=== PATIENT | female | born 1960 | race African-American/Black ===

== ENCOUNTER 2022-02-09 11:45 | Outpatient (REF) | payer BC, SELFPAY ==
[2022-02-09 14:00] LABS: Hematocrit 46.5 % (37.0-47.0); Hemoglobin 15.2 g/dl (12.0-16.0); Mean Corpuscular HGB Conc 32.7 g/dl (31.0-35.0); Mean Corpuscular Hemoglobin 29.5 pg (27.0-33.0); Mean Corpuscular Volume 90.1 fL (80.0-98.0); Mean Platelet Volume 10.5 fL (9.4-12.3); Platelet Count 222 X10*3/uL (160-400); Red Blood Count 5.16 X10*6/uL (4.20-5.50); Red Cell Distribution Width 14.9 % (11.0-16.0); White Blood Count 6.7 X10*3/uL (4.8-10.8)
[2022-02-09 14:05] LABS: Appearance Urine HAZY; Color Urine YELLOW; Glucose Urine UA NEG (NEG); Leukocyte Esterase Urine TRACE (NEG); Nitrite Urine POS (NEG); PH 5.5 (5.0-8.0); Specific Gravity - Urine 1.025 (1.005-1.025); Urine Blood NEG (NEG); Urine Ketones NEG (NEG); Urine Protein NEG (NEG-TRACE)
[2022-02-09 14:15] LABS: Alanine Aminotransferase 26 U/L (0-31); Albumin Level 4.3 g/dL (3.5-5.0); Alkaline Phosphatase 80 U/L (39-117); Anion Gap 12 (12-20); Aspartate Amino Transferase 20 U/L (5-31); Bilirubin Total 0.2 mg/dL (0.0-1.0); Blood Urea Nitrogen 24 mg/dL (9-16); Calcium 9.3 mg/dL (8.4-10.2); Carbon Dioxide 23 mmol/L (22-29); Chloride 106 mmol/L (96-108); Cholesterol 225 mg/dL; Estimated Glomerular Filt Rate 47; Glucose Fasting 95 mg/dL (60-99); HDL Cholesterol 36 mg/dL; LDL Cholesterol Calculated 162 mg/dl; Potassium 4.3 mmol/L (3.3-5.1); Sodium 137 mmol/L (135-145); Total Protein 7.8 g/dL (6.5-8.0); Triglycerides 139 mg/dL
[2022-02-09 14:23] LABS: Bacteria Urine 2+ /LPF; RBC Urine 0-2 /HPF (0); Squamous Epithelial Cell Urine 2+ /LPF
== END 2022-02-09 11:46 | disposition home or self-care (01) ==
LOC: HO.HMGCLDS 11:45
PROVIDERS: PCP Internal Medicine; Visit Provider Internal Medicine
DX: Z00.00 Encounter for general adult medical examination without abnormal findings (principal); E03.9 Hypothyroidism, unspecified
CPT/HCPCS: 36415; 80053; 80061; 81001; 84443; 85027

== ENCOUNTER 2023-04-28 11:57 | Outpatient (REF) | payer BC, SELFPAY ==
[2023-04-28 13:17] LABS: MANUAL DIFF FLAG NO
[2023-04-28 13:40] LABS: Basophils Percent Auto 0.5 % (0-2); Eosinophils Absolute Auto 0.1 X10*3/uL (0.0-0.4); Eosinophils Percent Auto 1.8 % (0-4); Hematocrit 49.1 % (37.0-47.0); Imm Gran Abs Auto 0.03 X10*3/uL (0.00-0.03); Imm Gran Pct Auto 0.4 % (0.0-0.4); Lymphocytes Percent Auto 39.8 % (20-40); Mean Corpuscular HGB Conc 32.6 g/dl (31.0-35.0); Mean Corpuscular Hemoglobin 29.4 pg (27.0-33.0); Mean Corpuscular Volume 90.3 fL (80.0-98.0); Mean Platelet Volume 10.9 fL (9.4-12.3); Monocytes Absolute Auto 0.8 X10*3/uL (0.1-1.2); Monocytes Percent Auto 10.6 % (2-11); Neutrophils Absolute Auto 3.6 x10*3/uL (2.0-8.3); Neutrophils Percent Auto 46.9 % (45-73); Platelet Count 216 X10*3/uL (160-400); Red Blood Count 5.44 X10*6/uL (4.20-5.50); Red Cell Distribution Width 15.3 % (11.0-16.0); White Blood Count 7.6 X10*3/uL (4.8-10.8)
[2023-04-28 14:56] LABS: Alanine Aminotransferase 23 U/L (0-31); Albumin Level 4.4 g/dL (3.5-5.0); Alkaline Phosphatase 74 U/L (39-117); Anion Gap 17 (12-20); Aspartate Amino Transferase 19 U/L (5-31); Bilirubin Total 0.4 mg/dL (0.0-1.0); Blood Urea Nitrogen 18 mg/dL (9-16); Calcium 9.4 mg/dL (8.4-10.2); Carbon Dioxide 20 mmol/L (22-29); Chloride 106 mmol/L (96-108); Cholesterol 224 mg/dL; Estimated Glomerular Filt Rate 48; Glucose Fasting 92 mg/dL (60-99); HDL Cholesterol 37 mg/dL; LDL Cholesterol Calculated 160 mg/dl; Potassium 4.5 mmol/L (3.3-5.1); Sodium 138 mmol/L (135-145); Triglycerides 135 mg/dL
[2023-04-28 14:59] LABS: TSH reflex Free T4 6.77 uIU/mL (0.32-4.0)
[2023-04-28 16:03] LABS: Free T4 (Free Thyroxine) 0.83 ng/dL (0.71-1.85)
== END 2023-04-28 11:58 | disposition home or self-care (01) ==
LOC: HO.HMGCLDS 11:57
PROVIDERS: PCP Internal Medicine; Visit Provider Internal Medicine
DX: Z00.00 Encounter for general adult medical examination without abnormal findings (principal); E03.9 Hypothyroidism, unspecified; E78.5 Hyperlipidemia, unspecified; I10 Essential (primary) hypertension
CPT/HCPCS: 36415; 80053; 80061; 84439; 84443; 85025

== ENCOUNTER 2023-05-01 09:59 | Outpatient (AMB) | payer BC, SELFPAY ==
[2023-05-01 10:07] VITALS: BP 128/72; PULSE 68; O2SAT 97; BMI 35.6
--- NOTE | 2023-05-01 10:07 | MHC.PC.OV ---
Vital Signs 05/01/23 10:07 Height 5 ft 5 in Weight 214 lb 4 oz BMI 35.6 BP 128/72 Blood Pressure Location Lt brachial Position Sitting Pulse 68 Pulse Source Pulse Oximeter Pulse Oximetry (%) 97 Oxygen Delivery Method Room Air Intake Visit Reasons: follow up on mammo Allergies pravastatin Allergy (Unknown, Verified 05/01/23 10:08) nausea rosuvastatin [From Crestor] Allergy (Verified 05/01/23 10:08) hives IV contrast Allergy (Unknown, Uncoded 03/17/22 08:28) rash SOB Medication List - Last Reconciled 05/01/23 by Akua Paige MD albuterol sulfate 90 mcg/actuation 2 puffs inhalation Q6H PRN levothyroxine 125 mcg PO DAILY Tobacco use date assessed: 05/01/23 Fall risk assessment: No Falls in past year Last assessed Fall Risk: 05/01/23 Dental Screening Dental Screen Date: 05/01/23 Did you have a dental visit in the last 12 months?: No Did you have a dental problem in the last 6 months where you did not have access to dental care?: No Was dental information given to patient?: No HPI HPI Comments History of Present Illness Details Pt presents for PE. PFS Medical History (Updated 05/01/23 @ 11:02 by Akua Piage MD) Annual physical exam History of mammogram HTN (hypertension) Hyperlipidemia Hypothyroidism Lung nodule < 6cm on CT Obesity Peptic ulcer disease Thyroid nodule Surgical History (Updated 05/01/23 @ 11:01 by Akua Paige MD) H/O colonoscopy No pertinent past surgical history Family History Father No problems noted. Mother Multiple sclerosis Social History Housing: House Alcohol intake: never Patient Tobacco Use Status: Current everyday Tobacco user Tobacco use type: Cigarette Cigarette Packs Per Day: 1 Cigarettes Per Day: 20 e-Cigarette/Vaping Use: Never Used Current occupational status: unemployed Cognitive needs: No Hearing needs: No Vision needs: No Questionnaire Thrive Questionnaire Date Thrive assessed: 02/09/22 ANIYA-7 AMB Questionnaire ANIYA-7 Date ANIYA - 7 assessed: 02/09/22 Source: Developed by Drs. Richard Prieto, Gavi Platt, Missael Chavez and colleagues, with an educational stevan from [employer]. Review of Systems Const All systems reviewed & are unremarkable except as noted in HPI and below Reports no additional complaints Eyes Reports no additional complaints ENT Reports no additional complaints Card Reports no additional complaints Resp Reports no additional complaints GI Reports no additional complaints Reports no additional complaints Physical exam (Primary Care) Vital Signs: Last Vital Signs Pulse 68 05/01/23 10:07 BP 128/72 05/01/23 10:07 Pulse Ox 97 05/01/23 10:07 Oxygen Delivery Method Room Air 05/01/23 10:07 BMI result Body Mass Index 35.6 Tobacco/Smoking Status: Tobacco use Status Tobacco use date assessed 05/01/23 05/01/23 10:12 Patient Tobacco Use Status Current everyday Tobacco 05/01/23 10:12 Tobacco use type Cigarette 05/01/23 10:12 e-Cigarette/Vaping Use Never Used 05/01/23 10:12 Thrive Assessment: Date of Thrive Assessment Date Thrive assessed 02/09/22 05/01/23 10:12 Const General: no acute distress HENMT Head: Yes normal to inspection Ears: hearing grossly normal bilaterally General nose exam: Normal external nose present Face and sinus: Yes normal facial exam Mouth: Normal oral and palatal mucosa present Throat: Yes posterior oropharynx normal Eyes General: appearance normal, both eyes and all related structures Neck Neck: Yes no lymphadenopathy and Yes supple Resp Effort & Inspection: normal respiratory effort Auscultation: clear to auscultation bilaterally Cardio Rhythm: regular rhythm Heart sounds: S1 normal heart sound present and S2 normal heart sound present GI Inspection: Yes normal to inspection Palpation (GI): Soft to palpation Percussion: Yes normal to percussion Auscultation: normal bowel sounds Assessment and Plan Assessment & Plan (1) Smoker: Comment: 1 PPD X 20 years Code(s): F17.200 - Nicotine dependence, unspecified, uncomplicated Plan: Tobacco quitting discussed with the patient (2) Hyperlipidemia: Comment: Intolerant to statins Code(s): E78.5 - Hyperlipidemia, unspecified Plan: Low-cholesterol diet increase exercise weight loss discussed with the patient (3) CKD (chronic kidney disease) stage 3, GFR 30-59 ml/min: Code(s): N18.30 - Chronic kidney disease, stage 3 unspecified Plan: Avoid NSAIDs and dehydration discussed with the patient check UA and renal ultrasound (4) Hypothyroidism: Code(s): E03.9 - Hypothyroidism, unspecified Plan: Patient was advised to take levothyroxine on empty stomach and recheck TSH in 2 months (5) Annual physical exam: Code(s): Z00.00 - Encounter for general adult medical examination without abnormal findings Plan: Well-balanced diet regular exercise weight loss discussed with the patient. She is up-to-date with the mammogram and colonoscopy (6) HTN (hypertension): Code(s): I10 - Essential (primary) hypertension Plan: Start 5 mg of olmesartan for renal protection and borderline elevated blood pressure, follow-up in 2 months Orders: Orders Comprehensive [place]. Panel Fast 2 Months E03.9 - Hypothyroidism, unspecified, N18.30 - Chronic kidney disease, stage 3 unspecified TSH reflex Free T4 2 Months E03.9 - Hypothyroidism, unspecified, N18.30 - Chronic kidney disease, stage 3 unspecified Complete Blood Count Auto Diff 2 Months E03.9 - Hypothyroidism, unspecified, N18.30 - Chronic kidney disease, stage 3 unspecified US renal BI 2 Months E03.9 - Hypothyroidism, unspecified, N18.30 - Chronic kidney disease, stage 3 unspecified Lipid Panel 2 Months E78.5 - Hyperlipidemia, unspecified UA w Microscopic Today N18.30 - Chronic kidney disease, stage 3 unspecified Referrals Thoracic Surgery Referral F17.200 - Nicotine dependence, unspecified, uncomplicated Medications: New olmesartan 5 mg PO DAILY 60 tabs 1RF Changed From levothyroxine Future refills pending upcoming appt 125 mcg PO DAILY 30 tabs 0RF To levothyroxine 125 mcg PO DAILY 90 tabs 3RF Coding Level of Care Code Est Pt Prev Care 40-64y(60341) Diagnoses Smoker F17.200 Hyperlipidemia E78.5 CKD (chronic kidney disease) stage 3, GFR 30-59 ml/min N18.30 Hypothyroidism E03.9 Annual physical exam Z00.00 HTN (hypertension) I10
== END 2023-05-01 11:04 | disposition home or self-care (01) ==
PROVIDERS: PCP Internal Medicine; Visit Provider Internal Medicine
DX: Z00.00 Encounter for general adult medical examination without abnormal findings (principal); I12.9 Hypertensive chronic kidney disease with stage 1 through stage 4 chronic kidney disease, or unspecified chronic kidney disease; N18.30 Chronic kidney disease, stage 3 unspecified; F17.200 Nicotine dependence, unspecified, uncomplicated; E03.9 Hypothyroidism, unspecified; E78.5 Hyperlipidemia, unspecified
CPT/HCPCS: 99396

== ENCOUNTER 2023-05-01 11:00 | Outpatient (REF) | payer BC, SELFPAY ==
[2023-05-01 13:59] LABS: Appearance Urine Cloudy; Color Urine Yellow; Glucose Urine UA Negative (Negative); Leukocyte Esterase Urine Large (3+) (Negative); Nitrite Urine Positive (Negative); PH 5.5 (5.0-9.0); UMIC TRIGGER UA YES; Urine Blood Small (1+) (Negative); Urine Ketones Negative (Negative); Urine Protein Negative (Neg-Trace)
[2023-05-01 14:11] LABS: Bacteria Urine 4+ (None Seen); Hyaline Casts Urine 0-2 /LPF (0-2); WBC Urine >50 /HPF (0-5)
== END 2023-05-01 11:01 | disposition home or self-care (01) ==
LOC: HO.HMGCLDS 11:00
PROVIDERS: PCP Internal Medicine; Visit Provider Internal Medicine
DX: N18.30 Chronic kidney disease, stage 3 unspecified (principal)
CPT/HCPCS: 81001

== ENCOUNTER 2023-06-06 10:14 | Outpatient (REF) | payer BC, SELFPAY ==
[2023-06-06 13:22] LABS: MANUAL DIFF FLAG NO
[2023-06-06 13:39] LABS: Basophils Percent Auto 0.4 % (0-2); Eosinophils Absolute Auto 0.1 X10*3/uL (0.0-0.4); Hematocrit 47.4 % (37.0-47.0); Hemoglobin 15.4 g/dl (12.0-16.0); Imm Gran Abs Auto 0.04 X10*3/uL (0.00-0.03); Imm Gran Pct Auto 0.6 % (0.0-0.4); Lymphocytes Absolute Auto 2.9 X10*3/uL (1.2-4.9); Lymphocytes Percent Auto 42.6 % (20-40); Mean Corpuscular HGB Conc 32.5 g/dl (31.0-35.0); Mean Corpuscular Hemoglobin 29.4 pg (27.0-33.0); Mean Corpuscular Volume 90.6 fL (80.0-98.0); Mean Platelet Volume 10.7 fL (9.4-12.3); Monocytes Absolute Auto 0.7 X10*3/uL (0.1-1.2); Monocytes Percent Auto 10.8 % (2-11); Neutrophils Percent Auto 43.6 % (45-73); Platelet Count 221 X10*3/uL (160-400); Red Blood Count 5.23 X10*6/uL (4.20-5.50); White Blood Count 6.9 X10*3/uL (4.8-10.8)
[2023-06-06 14:54] LABS: Alanine Aminotransferase 50 U/L (0-31); Albumin Level 4.6 g/dL (3.5-5.0); Alkaline Phosphatase 63 U/L (39-117); Anion Gap 14 (12-20); Aspartate Amino Transferase 24 U/L (5-31); Bilirubin Total 0.3 mg/dL (0.0-1.0); Blood Urea Nitrogen 25 mg/dL (9-16); Calcium 9.3 mg/dL (8.4-10.2); Carbon Dioxide 22 mmol/L (22-29); Chloride 106 mmol/L (96-108); Cholesterol 206 mg/dL (<200); Estimated Glomerular Filt Rate 47; Glucose Fasting 95 mg/dL (60-99); HDL Cholesterol 40 mg/dL (>40); LDL Cholesterol Calculated 144 mg/dL (<100); Potassium 4.5 mmol/L (3.3-5.1); Sodium 137 mmol/L (135-145); Total Protein 8.1 g/dL (6.5-8.0); Triglycerides 111 mg/dL (<150)
[2023-06-06 14:55] LABS: TSH reflex Free T4 0.54 uIU/mL (0.32-4.0)
== END 2023-06-06 10:15 | disposition home or self-care (01) ==
LOC: HO.HMGCLDS 10:14
PROVIDERS: PCP Internal Medicine; Visit Provider Internal Medicine
DX: E03.9 Hypothyroidism, unspecified (principal); N18.30 Chronic kidney disease, stage 3 unspecified; E78.5 Hyperlipidemia, unspecified; R74.8 Abnormal levels of other serum enzymes
CPT/HCPCS: 36415; 80053; 80061; 82550; 84443; 85025

== ENCOUNTER 2023-06-09 12:49 | Outpatient (AMB) | payer BC, SELFPAY ==
[2023-06-09 13:28] VITALS: BP 102/64; PULSE 76; O2SAT 96; BMI 34.1
--- NOTE | 2023-06-09 13:28 | MHC.PC.OV ---
Vital Signs 06/09/23 13:28 Height 5 ft 5 in Weight 205 lb BMI 34.1 BP 102/64 Blood Pressure Location Rt brachial Position Sitting Pulse 76 Pulse Source Pulse Oximeter Pulse Oximetry (%) 96 Oxygen Delivery Method Room Air Intake Visit Reasons: [facility] [place] [facility], syncope Intake Note: Pt is here today for Hospital follow up visit. Allergies pravastatin Allergy (Unknown, Verified 06/09/23 13:40) nausea rosuvastatin [From Crestor] Allergy (Verified 06/09/23 13:40) hives IV contrast Allergy (Unknown, Uncoded 06/09/23 13:40) rash SOB Medication List - Last Reconciled 06/09/23 by Akua Paige MD albuterol sulfate 90 mcg/actuation 2 puffs inhalation Q6H PRN levothyroxine 125 mcg PO DAILY olmesartan 5 mg PO DAILY Tobacco use date assessed: 05/01/23 Fall risk assessment: No Falls in past year Last assessed Fall Risk: 05/01/23 Dental Screening Dental Screen Date: 05/01/23 Did you have a dental visit in the last 12 months?: No Did you have a dental problem in the last 6 months where you did not have access to dental care?: No Was dental information given to patient?: No HPI [facility] [place] [facility], syncope HPI Details Patient presents for the follow-up of hospitalization at [facility] after syncope and elevation CPK question of myositis. Patient states she developed like pain when walking in a park and then syncope. There are no medical records available from hospitalization. Patient was told that her CPK level was in 6000 and was supposed to recheck the level. She had some DNA testing done by the neurologist Dr. Addi Segura MD ([facility]) fax [phone]. Patient denies muscle pains. She has been taking olmesartan for hypertension and levothyroxine for hypothyroidism. [facility] Medical History Nicotine dependence, cigarettes, uncomplicated Hypothyroidism HTN (hypertension) Lung nodule < 6cm on CT History of mammogram Peptic ulcer disease Thyroid nodule Obesity Hyperlipidemia Surgical History History of esophagogastroduodenoscopy (EGD) History of thyroidectomy History of colonoscopy Family History Father No problems noted. Mother Multiple sclerosis Social History Housing: House Alcohol intake: never Patient Tobacco Use Status: Current everyday Tobacco user Tobacco use type: Cigarette Cigarette Packs Per Day: 1 Cigarettes Per Day: 20 e-Cigarette/Vaping Use: Never Used Current occupational status: unemployed Cognitive needs: No Hearing needs: No Vision needs: No Questionnaire PHQ-9 Over the last 2 weeks, how often have you been bothered by any of the following problems? 1. Little interest or pleasure in doing things: not at all 2. Feeling down, depressed, or hopeless: not at all 3. Trouble falling or staying asleep, or sleeping too much: not at all 4. Feeling tired or having little energy: not at all 5. Poor appetite or overeating: not at all 6. Feeling bad about yourself - or that you are a failure or have let yourself or your family down: not at all 7. Trouble concentrating on things, such as reading the newspaper or watching television: not at all 8. Moving or speaking so slowly that other people could have noticed. Or the opposite - being so fidgety or restless that you have been moving around a lot more than usual: not at all 9. Thoughts that you would be better off or of hurting yourself in some way: not at all Total score: 0 Depression Screening Interpretation: Negative Source: Developed by Drs. Richard Prieto, Gavi Platt, Missael Chavez and colleagues, with an educational stevan from [employer]. Thrive Questionnaire Date Thrive assessed: 06/09/23 I am a: Patient What is your living situation today?: I have a steady place to live Within the past 12 months, did the food you bought not last and you didn't have the money to get more?: Never true Within the past 12 months, did you worry whether your food would run out before you got money to buy more?: Never true Do you have trouble paying for medicines?: No Do you have trouble getting transportation to medical appointments?: No Do you have trouble paying your heating and electricity bill?: No Do you have trouble taking care of your child, family member or friend?: No Do you have trouble with day-to-day activities such as bathing, preparing meals, shopping, managing finances, etc.?: No Are you currently unemployed and looking for a job?: No Are you interested in more education?: No Please select the resources that you would like help with: None AUDIT C Alcohol Use Questionnaire (AUDIT-C) 1. How often do you have a drink containing alcohol?: Never 3. How often do you have six or more drinks on one occasion?: Never Total Score: 0 ANIYA-7 AMB Questionnaire ANIYA-7 Date ANIYA - 7 assessed: 06/09/23 Feeling nervous, anxious, or on edge: 0 = Not at all Not being able to stop or control worryin = Not at all Worrying too much about different things: 0 = Not at all Trouble relaxin = Not at all Being so restless that it is hard to sit still: 0 = Not at all Becoming easily annoyed or irritable: 0 = Not at all Feeling afraid as if something awful might happen: 0 = Not at all Total ANIYA-7 score (0-4 normal; 5-9 mild; 10-14 moderate; 15-21 severe): 0 Source: Developed by Drs. Richard Prieto, Gavi Platt, Missael Chavez and colleagues, with an educational stevan from [employer]. Review of Systems Const All systems reviewed & are unremarkable except as noted in HPI and below Reports no additional complaints Eyes Reports no additional complaints ENT Reports no additional complaints Card Reports no additional complaints Resp Reports no additional complaints GI Reports no additional complaints Reports no additional complaints Physical exam (Primary Care) Vital Signs: Last Vital Signs Pulse 76 06/09/23 13:28 BP 102/64 06/09/23 13:28 Pulse Ox 96 06/09/23 13:28 Oxygen Delivery Method Room Air 06/09/23 13:28 BMI result Body Mass Index 34.1 Tobacco/Smoking Status: Tobacco use Status Tobacco use date assessed 05/01/23 06/09/23 13:29 Patient Tobacco Use Status Current everyday Tobacco 06/09/23 13:29 Tobacco use type Cigarette 06/09/23 13:29 e-Cigarette/Vaping Use Never Used 06/09/23 13:29 PHQ-9: PHQ-9 Score PHQ-9: Total score 0 06/09/23 13:44 Depression Screening Interpretation: Negative Thrive Assessment: Date of Thrive Assessment Date Thrive assessed 06/09/23 06/09/23 13:44 Const General: no acute distress [facility] General nose exam: Normal external nose present Eyes General: appearance normal, both eyes and all related structures Resp Effort & Inspection: normal respiratory effort Auscultation: clear to auscultation bilaterally Cardio Rhythm: regular rhythm Heart sounds: S1 normal heart sound present and S2 normal heart sound present GI Inspection: Yes normal to inspection Palpation (GI): Soft to palpation Percussion: Yes normal to percussion Assessment and Plan Assessment & Plan (1) Elevated CK: Code(s): R74.8 - Abnormal levels of other serum enzymes Plan: CK levels trending down, will recheck the level in 1 month. Will obtain records from [facility] (2) CKD (chronic kidney disease) stage 3, GFR 30-59 ml/min: Code(s): N18.30 - Chronic kidney disease, stage 3 unspecified Plan: Monitor renal function avoid dehydration (3) Hypothyroidism: Comment: (acquired - s/p thyroidectomy) Code(s): E03.9 - Hypothyroidism, unspecified Plan: Continue levothyroxine (4) HTN (hypertension): Code(s): I10 - Essential (primary) hypertension Plan: Continue olmesartan follow-up in 1 month Orders: Orders Comprehensive [place]. Panel Fast 1 Month N18.30 - Chronic kidney disease, stage 3 unspecified, R74.8 - Abnormal levels of other serum enzymes Creatine Kinase Total 1 Month N18.30 - Chronic kidney disease, stage 3 unspecified, R74.8 - Abnormal levels of other serum enzymes Coding Level of Care Code Est Pt Level 4 (92942) Diagnoses Elevated CK R74.8 CKD (chronic kidney disease) stage 3, GFR 30-59 ml/min N18.30 Hypothyroidism E03.9 HTN (hypertension) I10
== END 2023-06-09 14:28 | disposition home or self-care (01) ==
PROVIDERS: PCP Internal Medicine; Visit Provider Internal Medicine
DX: I12.9 Hypertensive chronic kidney disease with stage 1 through stage 4 chronic kidney disease, or unspecified chronic kidney disease (principal); R74.8 Abnormal levels of other serum enzymes; N18.30 Chronic kidney disease, stage 3 unspecified; E03.9 Hypothyroidism, unspecified
CPT/HCPCS: 99214

== ENCOUNTER 2023-06-16 14:57 | Outpatient (AMB) | payer BC, SELFPAY ==
--- NOTE | 2023-06-16 08:52 | MHC.OFFVIS ---
Intake Intake Visit Reasons: LDCT SD Allergies pravastatin Allergy (Unknown, Verified 06/09/23 13:40) nausea rosuvastatin [From Crestor] Allergy (Verified 06/09/23 13:40) hives IV contrast Allergy (Unknown, Uncoded 06/09/23 13:40) rash SOB HPI LDCT SD HPI Details Initial visit for this 62yo smoker with a 40PYH. Patient has been smoking since age 18 for 44 years at 1ppd. . Denies marijuana use. Denies second hand smoke exposure. Denies exposure to chemicals or substances like asbestos. . Reports family history of lung cancer. Sister in her mid 40s - has since passed. Denies personal history of cancers. . Denies chest CT in last year. Per records she had a 4mm on CT 05/2018 RUL, unchanged CT 09/2019. These were done in [place] and we do not have record. . Denies recent travel outside the . Denies recent respiratory illness or recent hospitalization for respiratory issues. Reports testing positive for COVID in 2020 Admits receiving COVID Vaccine. x 3. . Denies fever, chills, new/worsening cough, hemoptysis, hoarseness or dysphagia. Denies significant chest pain, significant dyspnea or unintentional weight loss. Patient Lung Cancer Screening Questionnaire reviewed with patient by provider. . Shared Decision Making Completed. Patient meets criteria. Discussed in detail with patient, the risk vs benefit of LDCT screening. Patient consents to proceed with scan. Discussed smoking cessation. [facility] Medical History (Updated 06/16/23 @ 15:06 by Roxy Ambrocio PA-C) Hypothyroidism HTN (hypertension) Hyperlipidemia Nicotine dependence, cigarettes, uncomplicated Lung nodule < 6cm on CT Peptic ulcer disease Obesity History of mammogram Surgical History (Updated 06/16/23 @ 15:10 by Roxy Ambrocio PA-C) History of partial gastrectomy History of repair of right rotator cuff History of hysterectomy History of thyroidectomy History of esophagogastroduodenoscopy (EGD) History of colonoscopy Family History Father No problems noted. Mother Multiple sclerosis Social History (Updated 06/16/23 @ 15:07 by Roxy Ambrocio PA-C) Housing: House Alcohol intake: never Patient Tobacco Use Status: Current everyday Tobacco user Tobacco use type: Cigarette Cigarette Packs Per Day: 1 Cigarettes Per Day: 20 Years Smoked: (onset 18yo, 1ppd x 44yrs, 40pyh) e-Cigarette/Vaping Use: Never Used Current occupational status: unemployed Cognitive needs: No Hearing needs: No Vision needs: No Assessment & Plan Assessment & Plan (1) Nicotine dependence, cigarettes, uncomplicated: Comment: (current smoker - onset 18yo, 1ppd x 44yrs, 40pyh) Code(s): F17.210 - Nicotine dependence, cigarettes, uncomplicated Plan: - SDM visit completed today in office. - Patient meets criteria for LDCT for lung cancer screening purposes and is asymptomatic. - Smoking cessation counseling offered. Patients can always call [phone]. - Will arrange for a LDCT scan of the chest for screening purposes at [facility]. - Risks, benefits, and alternatives were discussed in detail and the patient agrees to proceed. - Risks discussed include but are not limited to: radiation exposure, anxiety during testing and while awaiting results, false negatives, false positives and possibility of additional intervention such as further imaging or surgical procedures for benign disease. - Benefits are obviously detection of lung cancer at an early stage which can lead to improved outcomes. - Discussed the importance of screening program compliance with adherence to yearly LDCT scan as scheduled - or sooner interval scans for personalized screening regimen. - Discussed follow up plan. Our office will send a letter discussing results and if needed set up phone call and office visit based on CT findings. - Patient educated on results categorization and the management decisions for suspicious findings potentially found on the screening LDCT scan. Any patient with a Lung RADS score of 3 or 4 will be reviewed by a multidisciplinary team at [facility] to form a plan of action in regards to scan findings. - If further work up is warranted for a suspicious lung finding this will be followed by the Lung Cancer Screening program in conjunction with the Thoracic Surgery Department at [facility]. - A copy of the office note and LDCT will be sent to the patient's PCP - as well as documentation on any associated further plans of care. - Incidental findings on LDCT are the PCP's responsibility. These findings are indicated with an S finding on the LDCT Assessment. A note discussing the findings will be sent to the PCP who is then responsible for further management. - All questions answered.? Coding Level of Care Code Lung Cancer Screening [id number] Diagnoses Nicotine dependence, cigarettes, uncomplicated F17.210
== END 2023-06-16 15:16 | disposition home or self-care (01) ==
PROVIDERS: PCP Internal Medicine; Visit Provider Physician Assistant Medical
DX: F17.210 Nicotine dependence, cigarettes, uncomplicated (principal)
CPT/HCPCS: G0296

== ENCOUNTER 2023-06-16 15:20 | Outpatient (REF) | payer BC, SELFPAY ==
--- NOTE | ~2023-06-16 | CT_ITS ---
EXAMINATION: CT CHEST SCREENING CLINICAL INFORMATION: Current smoker. Nicotine dependence. COMPARISON: None available. TECHNIQUE: Multidetector volumetric CT imaging of the chest is performed without contrast using low dose technique. Additional 2D coronal and sagittal reformatted images and axial 3D maximum intensity projection (MIP) images are generated on the CT workstation. This CT examination was performed using dose optimization techniques as appropriate, variously including the following: *Automated exposure control *Adjustment of mA and/or kV according to patient size (this includes techniques or standardized protocols for targeted exams where dose is matched to indication/reason for exam; i.e. extremities or head) *Use of iterative reconstruction technique DLP: 58 mGy-cm FINDINGS: LUNGS: The central airways are patent. There is mild centrilobular and paraseptal emphysema with upper lobe predominance. No dense consolidation. Subtle groundglass opacity of the lower lobes favors atelectasis. No pneumothorax. There is an anterior right middle lobe 0.4 cm nodule on series 5 image 207. No additional pulmonary nodules identified. MEDIASTINUM: Normal heart size. No pericardial effusion. No mediastinal lymphadenopathy. The thyroid gland is not seen and may be absent. CORONARY ARTERY CALCIFICATION: None visualized on this study. PLEURA: There is no pleural effusion. No pleural mass or thickening. AXILLA: No lymphadenopathy. UPPER ABDOMEN: Low-attenuation of the liver suggestive of hepatic steatosis. Multiple hepatic cysts are seen. Additional prominent cyst in the right upper quadrant not fully visualized. This could be associated with the right kidney. No acute abnormality in the visualized upper abdomen. OSSEOUS STRUCTURES: No acute or suspicious osseous abnormality. Mild degenerative changes throughout the spine. CT/CT lung screening IMPRESSION: 1. Mild emphysema. 0.4 cm right middle lobe pulmonary nodule. 2. Hepatic steatosis. ASSESSMENT: Lung-RADS category 2: Benign RECOMMENDATION: Routine annual low-dose CT screening in 12 months.
== END 2023-06-16 15:21 | disposition home or self-care (01) ==
LOC: HO.CT 15:20
PROVIDERS: PCP Internal Medicine; Visit Provider Physician Assistant Medical
DX: Z12.2 Encounter for screening for malignant neoplasm of respiratory organs (principal); F17.210 Nicotine dependence, cigarettes, uncomplicated
CPT/HCPCS: 71271; G0296

== ENCOUNTER 2023-07-17 09:14 | Outpatient (AMB) | payer MEDICARE, BC, SELFPAY ==
[2023-07-17 09:29] VITALS: BP 122/74; PULSE 73; O2SAT 96; BMI 35.1
--- NOTE | 2023-07-17 09:29 | MHC.PC.OV ---
Vital Signs 07/17/23 09:29 Height 5 ft 5 in Weight 211 lb BMI 35.1 BP 122/74 Blood Pressure Location Lt brachial Position Sitting Pulse 73 Pulse Source Pulse Oximeter Pulse Oximetry (%) 96 Oxygen Delivery Method Room Air Intake Visit Reasons: 1 month follow up Intake Note: Pt is here today for 1 month follow up visit. Pt states that she was in the hospital for a week. Allergies pravastatin Allergy (Unknown, Verified 07/17/23 09:33) nausea rosuvastatin [From Crestor] Allergy (Verified 07/17/23 09:33) hives IV contrast Allergy (Unknown, Uncoded 07/17/23 09:33) rash SOB Medication List - Last Reconciled 07/17/23 by Akua Paige MD albuterol sulfate 90 mcg/actuation 2 puffs inhalation Q6H PRN levothyroxine 125 mcg PO DAILY olmesartan 5 mg PO DAILY Tobacco use date assessed: 07/17/23 HPI 1 month follow up HPI Details Patient presents for the follow-up of hospitalization and [place] for acute renal failure elevated CPK level. The workup was negative for sepsis. Patient states that blood work for myositis workup was sent to the outside lab. Patient reports intermittent muscle tightness in her legs but has been maintaining good hydration and walking daily. [facility] Medical History Hypothyroidism HTN (hypertension) Hyperlipidemia Nicotine dependence, cigarettes, uncomplicated Lung nodule < 6cm on CT Peptic ulcer disease Obesity History of mammogram Surgical History History of partial gastrectomy History of repair of right rotator cuff History of hysterectomy History of thyroidectomy History of esophagogastroduodenoscopy (EGD) History of colonoscopy Family History Father No problems noted. Mother Multiple sclerosis Social History Housing: House Alcohol intake: never Patient Tobacco Use Status: Current everyday Tobacco user Tobacco use type: Cigarette Cigarette Packs Per Day: 1 Cigarettes Per Day: 20 Years Smoked: (onset 18yo, 1ppd x 44yrs, 40pyh) e-Cigarette/Vaping Use: Never Used Current occupational status: unemployed Cognitive needs: No Hearing needs: No Vision needs: No Questionnaire Thrive Questionnaire Date Thrive assessed: 06/09/23 ANIYA-7 AMB Questionnaire ANIYA-7 Date ANIYA - 7 assessed: 06/09/23 Source: Developed by Drs. Richard Preito, Gavi Platt, Missael Chavez and colleagues, with an educational stevan from [employer]. Review of Systems Const All systems reviewed & are unremarkable except as noted in HPI and below Reports no additional complaints Eyes Reports no additional complaints ENT Reports no additional complaints Resp Reports no additional complaints Reports no additional complaints Physical exam (Primary Care) Vital Signs: Last Vital Signs Pulse 73 07/17/23 09:29 BP 122/74 07/17/23 09:29 Pulse Ox 96 07/17/23 09:29 Oxygen Delivery Method Room Air 07/17/23 09:29 BMI result Body Mass Index 35.1 Tobacco/Smoking Status: Tobacco use Status Tobacco use date assessed 07/17/23 07/17/23 09:34 Patient Tobacco Use Status Current everyday Tobacco 07/17/23 09:30 Tobacco use type Cigarette 07/17/23 09:30 e-Cigarette/Vaping Use Never Used 07/17/23 09:30 Thrive Assessment: Date of Thrive Assessment Date Thrive assessed 06/09/23 07/17/23 09:30 Const General: no acute distress HENMT Mouth: Normal oral and palatal mucosa present Resp Effort & Inspection: normal respiratory effort Auscultation: clear to auscultation bilaterally Cardio Rhythm: regular rhythm Heart sounds: S1 normal heart sound present and S2 normal heart sound present GI Inspection: Yes normal to inspection Palpation (GI): Soft to palpation Percussion: Yes normal to percussion Assessment and Plan Assessment & Plan (1) Myositis: Comment: hospitalized in [place], Jul 0512/2022 Code(s): M60.9 - Myositis, unspecified Plan: Check CK level and referred to rheumatology (2) CKD (chronic kidney disease) stage 3, GFR 30-59 ml/min: Code(s): N18.30 - Chronic kidney disease, stage 3 unspecified Plan: Monitor renal function (3) Hypothyroidism: Comment: (acquired - s/p thyroidectomy) Code(s): E03.9 - Hypothyroidism, unspecified Plan: Continue levothyroxine monitor TSH level (4) HTN (hypertension): Code(s): I10 - Essential (primary) hypertension Plan: Continue olmesartan Orders: Orders Lipid Panel 6 Months E03.9 - Hypothyroidism, unspecified, I10 - Essential (primary) hypertension, N18.30 - Chronic kidney disease, stage 3 unspecified, R74.8 - Abnormal levels of other serum enzymes Comprehensive [place]. Panel Fast 6 Months E03.9 - Hypothyroidism, unspecified, I10 - Essential (primary) hypertension, N18.30 - Chronic kidney disease, stage 3 unspecified, R74.8 - Abnormal levels of other serum enzymes Creatine Kinase Total Today M60.9 - Myositis, unspecified, N18.30 - Chronic kidney disease, stage 3 unspecified Comprehensive Met. Panel Today M60.9 - Myositis, unspecified, N18.30 - Chronic kidney disease, stage 3 unspecified Complete Blood Count Auto Diff 6 Months E03.9 - Hypothyroidism, unspecified, I10 - Essential (primary) hypertension, N18.30 - Chronic kidney disease, stage 3 unspecified, R74.8 - Abnormal levels of other serum enzymes TSH reflex Free T4 6 Months E03.9 - Hypothyroidism, unspecified, I10 - Essential (primary) hypertension, N18.30 - Chronic kidney disease, stage 3 unspecified, R74.8 - Abnormal levels of other serum enzymes Referrals Rheumatology Referral M60.9 - Myositis, unspecified Coding Level of Care Code Est Pt Level 3 (15988) Diagnoses Myositis M60.9 CKD (chronic kidney disease) stage 3, GFR 30-59 ml/min N18.30 Hypothyroidism E03.9 HTN (hypertension) I10
== END 2023-07-17 10:18 | disposition home or self-care (01) ==
PROVIDERS: PCP Internal Medicine; Visit Provider Internal Medicine
DX: M60.9 Myositis, unspecified (principal); I12.9 Hypertensive chronic kidney disease with stage 1 through stage 4 chronic kidney disease, or unspecified chronic kidney disease; N18.30 Chronic kidney disease, stage 3 unspecified; E03.9 Hypothyroidism, unspecified
CPT/HCPCS: 99213

== ENCOUNTER 2023-07-17 10:07 | Outpatient (REF) | payer MEDICARE, BC, SELFPAY ==
[2023-07-17 13:51] LABS: Alanine Aminotransferase 27 U/L (0-31); Albumin Level 4.2 g/dL (3.5-5.0); Alkaline Phosphatase 74 U/L (39-117); Anion Gap 14 (12-20); Aspartate Amino Transferase 18 U/L (5-31); Bilirubin Total 0.3 mg/dL (0.0-1.0); Blood Urea Nitrogen 20 mg/dL (9-16); Carbon Dioxide 21 mmol/L (22-29); Chloride 107 mmol/L (96-108); Estimated Glomerular Filt Rate 60; Glucose Random 90 mg/dL (60-115); Potassium 4.2 mmol/L (3.3-5.1); Sodium 138 mmol/L (135-145); Total Protein 7.6 g/dL (6.5-8.0)
== END 2023-07-17 10:08 | disposition home or self-care (01) ==
LOC: HO.HMGCLDS 10:07
PROVIDERS: PCP Internal Medicine; Visit Provider Internal Medicine
DX: M60.9 Myositis, unspecified (principal); N18.30 Chronic kidney disease, stage 3 unspecified
CPT/HCPCS: 36415; 80053; 82550

== ENCOUNTER 2023-09-01 08:05 | Outpatient (AMB) | payer MEDICARE, BC, SELFPAY ==
--- NOTE | 2023-09-01 09:02 | AM.OFFWIN_ITS ---
Intake Vital Signs 09/01/23 09:03 Height 5 ft 5 in Weight 210 lb BMI 34.9 BP 124/74 Blood Pressure Location Rt brachial Position Sitting Pulse 81 Pulse Source Pulse Oximeter Temp 98.2 F Temp Source Oral Pulse Oximetry (%) 98 Oxygen Delivery Method Room Air Intake Visit Reasons: EST/est cough and congestion [phone] Intake Note: Pt is here c/o cough and chest congestion for one week. Patient Tobacco Use Status: Current everyday Tobacco user Allergies pravastatin Allergy (Unknown, Verified 09/01/23 09:02) nausea rosuvastatin [From Crestor] Allergy (Verified 09/01/23 09:02) hives IV contrast Allergy (Unknown, Uncoded 09/01/23 09:02) rash SOB Do you need a note to return to daycare/school/sports/work: No HPI HPI Comments History of Present Illness Details This is a 63-year-old female who presents to the office today for sick visit. Patient complaining of chest congestion with productive cough with green/ yellow sputum x3 days. patient states she tested positive for the flu approximately 4 days ago. She has been having congestion, rhinorrhea, sore throat, fever/ chills, and chest congestion with a productive cough with thick green-yellow sputum. She denies any shortness of breath or wheezing. [facility] Medical History Hypothyroidism HTN (hypertension) Hyperlipidemia Nicotine dependence, cigarettes, uncomplicated Lung nodule < 6cm on CT Peptic ulcer disease Obesity History of mammogram Surgical History History of partial gastrectomy History of repair of right rotator cuff History of hysterectomy History of thyroidectomy History of esophagogastroduodenoscopy (EGD) History of colonoscopy Family History Father No problems noted. Mother Multiple sclerosis Social History Housing: House Alcohol intake: never Patient Tobacco Use Status: Current everyday Tobacco user Tobacco use type: Cigarette Cigarette Packs Per Day: 1 Cigarettes Per Day: 20 Years Smoked: (onset 18yo, 1ppd x 44yrs, 40pyh) e-Cigarette/Vaping Use: Never Used Current occupational status: unemployed Cognitive needs: No Hearing needs: No Vision needs: No Review of Systems Const All systems reviewed & are unremarkable except as noted in HPI and below Reports no additional complaints Eyes Reports no additional complaints ENT Reports no additional complaints Card Reports no additional complaints Resp Reports no additional complaints GI Reports no additional complaints Reports no additional complaints Musc Reports no additional complaints Skin/Breast Reports system reviewed and no additional complaints, except as documented Neuro Reports no additional complaints Psych Reports no additional complaints Endo Reports no additional complaints Keith/Lymph Reports no additional complaints Aller/Immun Reports no additional complaints Physical Exam Vital Signs: Last Vital Signs Temp 98.2 F 09/01/23 09:03 Pulse 81 09/01/23 09:03 BP 124/74 09/01/23 09:03 Pulse Ox 98 09/01/23 09:03 Oxygen Delivery Method Room Air 09/01/23 09:03 BMI result Body Mass Index 34.9 Const Other: Vital signs reviewed. Constitutional: Non-toxic appearing. No acute distress. Well-developed and well-nourished. HEENT: Normocephalic and atraumatic. Tympanic membranes without erythema, edema, or bulging bilaterally. External auditory canals without erythema or edema bilaterally. Moist mucous membranes. No pharyngeal erythema or exudates. Skin: Warm and dry. No rashes or lesions noted. Neck: Full and painless range of motion. No cervical lymphadenopathy. Cardio: Regular rate and rhythm. No murmurs, gallops, or rubs. No lower extremity edema. No JVD. Pulmonary: No respiratory distress. No accessory muscle usage. Clear to auscultation bilaterally without wheezing, crackles, or rhonchi. Gastrointestinal: Soft, nontender, and nondistended in all 4 quadrants. Normoactive bowel sounds in all 4 quadrants. Genitourinary: No CVA tenderness. Musculoskeletal: Normal range of motion in joints throughout the body. No deformity or other signs of injury. Neuro: Alert and oriented x4. Cranial nerves 2-12 grossly intact. No focal deficits appreciated. Psych: Normal mood and affect. Assessment & Plan Assessment & Plan (1) Upper respiratory tract infection: Code(s): J06.9 - Acute upper respiratory infection, unspecified Plan: This is a 63-year-old female presenting to the office complaining of chest congestion and cough with thick green-yellow sputum production in the setting of positive flu. Patient's vital signs are stable, her physical exam is benign, and she is overall nontoxic appearing. Patient presenting with signs and symptoms most consistent with acute respiratory tract infection. Recommended symptomatic management including rest, increased fluids, advil/tylenol for pain/fever as long as she does not have any medical contraindications, and over the counter throat lozenges/decongestants. patient was also given a prescription for p.o. azithromycin 500 mg today followed by 250 mg daily x4 days given reports of thick green-yellow sputum production and chest congestion. She has no expiratory wheezing or shortness of breath to suggest acute bronchitis. I do not believe that steroids are warranted at this time. Patient advised to follow up here or go to the emergency room for worsening/persistent symptoms. Patient verbalized understanding and is agreeable with the plan. Medications: New azithromycin For 250 mg dose pack: take 500 mg today (day 1), then 250 mg for 4 days (days 2-5) PO 6 tabs 0RF Coding Level of Care Code Est Pt Level 3 (03206) Diagnoses Upper respiratory tract infection J06.9
[2023-09-01 09:03] VITALS: BP 124/74; PULSE 81; TEMP 36.8; O2SAT 98; BMI 34.9
== END 2023-09-01 09:29 | disposition home or self-care (01) ==
PROVIDERS: PCP Internal Medicine; Visit Provider Physician Assistant Medical
DX: J06.9 Acute upper respiratory infection, unspecified (principal)
CPT/HCPCS: 99213

== ENCOUNTER 2023-09-01 08:09 | Outpatient (REF) | payer MEDICARE, BC, SELFPAY | END 2023-09-01 08:10 | disposition home or self-care (01) | LOC: HO.HMGCLDS 08:09 | PROVIDERS: PCP Internal Medicine; Visit Provider Internal Medicine | DX: M60.9 Myositis, unspecified (principal) | CPT/HCPCS: 36415; 82550 ==

== ENCOUNTER 2023-10-18 10:52 | Outpatient (AMB) | payer MEDICARE, BC, SELFPAY ==
[2023-10-18 10:56] VITALS: BP 142/76; PULSE 83; TEMP 36.5; O2SAT 97; BMI 36.1
--- NOTE | 2023-10-18 10:56 | A.OFFVIS_ITS ---
Intake Vital Signs 10/18/23 10:56 Height 5 ft 5 in Weight 217 lb 2.485 oz BMI 36.1 BP 142/76 H Blood Pressure Location Rt brachial Position Sitting Pulse 83 Pulse Source Pulse Oximeter Temp 97.7 F Temp Source Skin Pulse Oximetry (%) 97 Oxygen Delivery Method Room Air Intake Visit Reasons: Myositis Intake Note: New pt presents today for Myositis consult. 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 Back in June patient was in [place] and she had abrupt onset of bilateral upper extremities and feet stiffening and cramping up, weakness. She went to the hospital. She was found to have significantly elevated CPK aroubd 5k, as well as SHANI. She was diagnosed with rhabdomyolysis. She was treated with IV fluids with improvement of her CPK and discharged. She mentions that while she was admitted she was evaluated by Neurology and Rheumatology and extensive blood work was ordered. She also states that she had genetic testing She also had CT chest abdomen and pelvis. She did not require any prednisone use. She states that she had a similar episode about a month ago when both her legs cramped up and stiffened for about 2 hours. Patient denies any muscle weakness. Denies any joint pain or swelling. She denies any skin rashes, fevers, weight loss. Denies any history of DVT/PE. Mentions that her mother had MS. He is unaware of any other autoimmune rheumatic disease. She had 3 pregnancies and no abortions or miscarriages. [facility] Medical History Hypothyroidism HTN (hypertension) Hyperlipidemia Nicotine dependence, cigarettes, uncomplicated Lung nodule < 6cm on CT Peptic ulcer disease Obesity History of mammogram Surgical History History of partial gastrectomy History of repair of right rotator cuff History of hysterectomy History of thyroidectomy History of esophagogastroduodenoscopy (EGD) History of colonoscopy Family History Father No problems noted. Mother Multiple sclerosis Social History Household Members: Spouse Housing: House Alcohol intake: current Alcohol intake frequency: does not drink Patient Tobacco Use Status: Current everyday Tobacco user Tobacco use type: Cigarette Cigarette Packs Per Day: 1 Cigarettes Per Day: 20 Years Smoked: (onset 18yo, 1ppd x 44yrs, 40pyh) e-Cigarette/Vaping Use: Never Used Current occupational status: unemployed Cognitive needs: No Hearing needs: No Vision needs: No Female Reproductive History Menstrual Total pregnancies: 3 Review of Systems Const Denies fever(s) and Denies weight loss Resp Denies cough Musc Reports muscle cramps and Reports stiffness Skin/Breast Denies rash Physical Exam Vital Signs: Last Vital Signs Temp 97.7 F 10/18/23 10:56 Pulse 83 10/18/23 10:56 BP 142/76 H 10/18/23 10:56 Pulse Ox 97 10/18/23 10:56 Oxygen Delivery Method Room Air 10/18/23 10:56 BMI result Body Mass Index 36.1 Const General: cooperative, healthy appearing and comfortable Nutritional Appearance: obese Orientation/consciousness: patient oriented x3 Limitations: no limitations HEENT Head: Yes normocephalic and Yes atraumatic Mouth: moist mucous membranes Resp Effort & Inspection: normal respiratory effort and able to speak in complete sentences Auscultation: clear to auscultation bilaterally Cardio Rate: regular rate Rhythm: regular rhythm GI Inspection: No distended Palpation (GI): Soft to palpation and nontender Skin Other: No heliotrope rash, V neck, show sign, Gottron's rash General skin exam: no rashes or lesions noted Neuro General: patient oriented x3 Extrem Other: No active synovitis Proximal muscle strength 5/5 all 4 extremities Normal nailfold capillaroscopy Results Reviewed Results Reviewed: Labs 06/2023? JUSTIN 1-40 speckled? [employer]/[place]/SSA/SSB/cardiolipin IgM/cardiolipin IgG/cardiolipin IgA/beta 2 glycoprotein IgG/beta 2 glycoprotein IgM/mitochondrial antibody/CCP antibody/TPO/thyroglobulin/MPO/PR3 negative Lupus anticoagulant negative Mariah 1 antibody negative? Acetyl choline receptor antibody negative C4 39 normal C3 normal Assessment & Plan Assessment & Plan (1) Elevated CK: Code(s): R74.8 - Abnormal levels of other serum enzymes Plan: This is a 63-year-old female who presents for evaluation of elevated CPK. Back in the fall, patient was admitted to [facility] in [place] due to an episode of generalized muscle stiffness and cramping, she was found to have elevated CPK up to 5 K. she was treated with IV fluids with improvement of her CPK and discharged. Upon evaluation today I do not see any proximal muscle weakness, my suspicion for autoimmune myositis is very low. Patient does not have any proximal muscle weakness, symptoms improved without immune suppression. There are no dermatomyositis skin rashes. Her labs showed positive JUSTIN 1-40 speckled which is generally considered negative in the Rheumatology world. Serology is negative otherwise Her symptoms however of episodic generalized muscle stiffness and elevated CPK should be evaluated by Neurology. Recommend Neurology evaluation Plan I spent 47 minutes reviewing patient's chart, looking at records from her hospitalization at [facility], evaluating patient, counseling patient and documenting in the chart Coding Level of Care Code New Pt Level 4 (12042) Diagnoses Elevated CK R74.8
== END 2023-10-18 11:42 | disposition home or self-care (01) ==
PROVIDERS: PCP Internal Medicine; Visit Provider Student in an Organized Health Care Education/Training Program
DX: R74.8 Abnormal levels of other serum enzymes (principal)
CPT/HCPCS: 99204

== ENCOUNTER → 2023-10-18 10:52 | Outpatient (BNVA) | payer MEDICARE, BC, SELFPAY | PROVIDERS: PCP Internal Medicine; Visit Provider Student in an Organized Health Care Education/Training Program | DX: R74.8 Abnormal levels of other serum enzymes (principal) | CPT/HCPCS: 99202 ==

== ENCOUNTER 2023-11-22 11:45 | Outpatient (AMB) | payer MEDICARE, BC, SELFPAY ==
[2023-11-22 12:02] VITALS: BP 136/80; PULSE 78; O2SAT 97; BMI 35.4
--- NOTE | 2023-11-22 12:02 | A.OFFPC_ITS ---
Vital Signs 11/22/23 12:02 Height 5 ft 5 in Weight 213 lb BMI 35.4 BP 136/80 Blood Pressure Location Lt brachial Position Sitting Pulse 78 Pulse Source Pulse Oximeter Pulse Oximetry (%) 97 Oxygen Delivery Method Room Air Intake Visit Reasons: Lump on neck Intake Note: Pt is here today c/o lump on neck Allergies pravastatin Allergy (Unknown, Verified 11/22/23 12:04) nausea rosuvastatin [From Crestor] Allergy (Verified 11/22/23 12:04) hives IV contrast Allergy (Unknown, Uncoded 11/22/23 12:04) rash SOB Medication List - Last Reconciled 11/22/23 by Akua Paige MD albuterol sulfate 90 mcg/actuation 2 puffs inhalation Q6H PRN azithromycin For 250 mg dose pack: take 500 mg today (day 1), then 250 mg for 4 days (days 2-5) PO benzonatate 100 mg PO TID levothyroxine 125 mcg PO DAILY olmesartan 5 mg PO DAILY Tobacco use date assessed: 11/22/23 Fall risk assessment: No Falls in past year Last assessed Fall Risk: 11/22/23 Dental Screening Dental Screen Date: 11/22/23 Did you have a dental visit in the last 12 months?: No Was dental information given to patient?: No HPI Lump on neck HPI Details Patient complains of sinus congestion postnasal drip sore throat productive cough with yellow sputum for 1 week. She denies shortness of breath pleurisy but reports body aches and low-grade fever. Hypertension is controlled on olmesartan. [facility] Medical History Hypothyroidism HTN (hypertension) Hyperlipidemia Nicotine dependence, cigarettes, uncomplicated Lung nodule < 6cm on CT Peptic ulcer disease Obesity History of mammogram Surgical History History of partial gastrectomy History of repair of right rotator cuff History of hysterectomy History of thyroidectomy History of esophagogastroduodenoscopy (EGD) History of colonoscopy Family History Father No problems noted. Mother Multiple sclerosis Social History Household Members: Spouse Housing: House Alcohol intake: current Alcohol intake frequency: does not drink Patient Tobacco Use Status: Current everyday Tobacco user Tobacco use type: Cigarette Cigarette Packs Per Day: 1 Cigarettes Per Day: 20 Years Smoked: (onset 18yo, 1ppd x 44yrs, 40pyh) e-Cigarette/Vaping Use: Never Used Current occupational status: unemployed Cognitive needs: No Hearing needs: No Vision needs: No Questionnaire PHQ-9 Over the last 2 weeks, how often have you been bothered by any of the following problems? 1. Little interest or pleasure in doing things: not at all 2. Feeling down, depressed, or hopeless: not at all 3. Trouble falling or staying asleep, or sleeping too much: not at all 4. Feeling tired or having little energy: several days 5. Poor appetite or overeating: not at all 6. Feeling bad about yourself - or that you are a failure or have let yourself or your family down: not at all 7. Trouble concentrating on things, such as reading the newspaper or watching television: not at all 8. Moving or speaking so slowly that other people could have noticed. Or the opposite - being so fidgety or restless that you have been moving around a lot more than usual: not at all 9. Thoughts that you would be better off or of hurting yourself in some way: not at all Total score: 1 Source: Developed by Drs. Richard Prieto, Gavi Platt, Missael Chavez and colleagues, with an educational stevan from [employer]. Thrive Questionnaire Date Thrive assessed: 11/22/23 I am a: Patient What is your living situation today?: I have a steady place to live Within the past 12 months, did the food you bought not last and you didn't have the money to get more?: Never true Within the past 12 months, did you worry whether your food would run out before you got money to buy more?: Never true Do you have trouble paying for medicines?: No Do you have trouble getting transportation to medical appointments?: No Do you have trouble paying your heating and electricity bill?: No Do you have trouble taking care of your child, family member or friend?: No Do you have trouble with day-to-day activities such as bathing, preparing meals, shopping, managing finances, etc.?: No Are you currently unemployed and looking for a job?: No Are you interested in more education?: No THRIVE Score: 0 AUDIT C Alcohol Use Questionnaire (AUDIT-C) 1. How often do you have a drink containing alcohol?: Never Total Score: 0 ANIYA-7 AMB Questionnaire ANIYA-7 Date ANIYA - 7 assessed: 11/22/23 Feeling nervous, anxious, or on edge: 0 = Not at all Not being able to stop or control worryin = Not at all Worrying too much about different things: 0 = Not at all Trouble relaxin = Several days Being so restless that it is hard to sit still: 0 = Not at all Becoming easily annoyed or irritable: 1 = Several days Feeling afraid as if something awful might happen: 0 = Not at all Total ANIYA-7 score (0-4 normal; 5-9 mild; 10-14 moderate; 15-21 severe): 2 Source: Developed by Drs. Richard Prieto, Gavi Platt, Missael Chavez and colleagues, with an educational stevan from [employer]. Review of Systems Const All systems reviewed & are unremarkable except as noted in HPI and below Reports no additional complaints Eyes Reports no additional complaints ENT Reports no additional complaints Card Reports no additional complaints Resp Reports no additional complaints GI Reports no additional complaints Reports no additional complaints Physical exam (Primary Care) Vital Signs: Last Vital Signs Pulse 78 11/22/23 12:02 BP 136/80 11/22/23 12:02 Pulse Ox 97 11/22/23 12:02 Oxygen Delivery Method Room Air 11/22/23 12:02 BMI result Body Mass Index 35.4 Tobacco/Smoking Status: Tobacco use Status Tobacco use date assessed 11/22/23 11/22/23 12:07 Patient Tobacco Use Status Current everyday Tobacco 11/22/23 12:07 Tobacco use type Cigarette 11/22/23 12:07 e-Cigarette/Vaping Use Never Used 11/22/23 12:07 PHQ-9: PHQ-9 Score PHQ-9: Total score 1 11/22/23 12:09 Thrive Assessment: Date of Thrive Assessment Date Thrive assessed 11/22/23 11/22/23 12:09 Const General: no acute distress HENMT Ears: TM's normal bilaterally Face and sinus: Yes normal facial exam Throat: Yes posterior oropharynx abnormal (erythema) and Yes postnasal drainage Eyes General: appearance normal, both eyes and all related structures Neck Neck: Yes no lymphadenopathy and Yes supple Resp Effort & Inspection: normal respiratory effort Auscultation: diminished lung sounds Cardio Rhythm: regular rhythm Heart sounds: S1 normal heart sound present and S2 normal heart sound present Assessment and Plan Assessment & Plan (1) Sinusitis: Code(s): J32.9 - Chronic sinusitis, unspecified Plan: [facility] and Tesdafne Lawson prescribed and supportive care discussed with the patient (2) Myositis: Comment: hospitalized in [place], Jul 0512/2022 Code(s): M60.9 - Myositis, unspecified Plan: Patient has an appointment with Neurology in January (3) CKD (chronic kidney disease) stage 3, GFR 30-59 ml/min: Code(s): N18.30 - Chronic kidney disease, stage 3 unspecified Plan: Monitor renal function avoid nephrotoxins follow-up in mid December with the labs before (4) HTN (hypertension): Code(s): I10 - Essential (primary) hypertension Plan: Continue olmesartan (5) Hypothyroidism: Comment: (acquired - s/p thyroidectomy) Code(s): E03.9 - Hypothyroidism, unspecified Plan: Continue levothyroxine Orders: Orders Comprehensive [place]. Panel Fast 2 Months E03.9 - Hypothyroidism, unspecified, E78.5 - Hyperlipidemia, unspecified, I10 - Essential (primary) hypertension, M60.9 - Myositis, unspecified Complete Blood Count Auto Diff 2 Months E03.9 - Hypothyroidism, unspecified, E78.5 - Hyperlipidemia, unspecified, I10 - Essential (primary) hypertension, M60.9 - Myositis, unspecified Creatine Kinase Total 2 Months E03.9 - Hypothyroidism, unspecified, E78.5 - Hyperlipidemia, unspecified, I10 - Essential (primary) hypertension, M60.9 - Myositis, unspecified Lipid Panel 2 Months E03.9 - Hypothyroidism, unspecified, E78.5 - Hyperlipidemia, unspecified, I10 - Essential (primary) hypertension, M60.9 - Myositis, unspecified TSH reflex Free T4 2 Months E03.9 - Hypothyroidism, unspecified, E78.5 - Hyperlipidemia, unspecified, I10 - Essential (primary) hypertension, M60.9 - Myositis, unspecified Medications: New azithromycin For 250 mg dose pack: take 500 mg today (day 1), then 250 mg for 4 days (days 2-5) PO 6 tabs 0RF benzonatate 100 mg PO TID 30 caps 0RF Coding Level of Care Code Est Pt Level 4 (74511) Diagnoses Sinusitis J32.9 Myositis M60.9 CKD (chronic kidney disease) stage 3, GFR 30-59 ml/min N18.30 HTN (hypertension) I10 Hypothyroidism E03.9
== END 2023-11-22 12:53 | disposition home or self-care (01) ==
PROVIDERS: PCP Internal Medicine; Visit Provider Internal Medicine
DX: I12.9 Hypertensive chronic kidney disease with stage 1 through stage 4 chronic kidney disease, or unspecified chronic kidney disease (principal); N18.30 Chronic kidney disease, stage 3 unspecified; J32.9 Chronic sinusitis, unspecified; M60.9 Myositis, unspecified; E03.9 Hypothyroidism, unspecified
CPT/HCPCS: 99214

== ENCOUNTER 2024-01-23 08:17 | Outpatient (REF) | payer MEDICARE, BC, SELFPAY ==
[2024-01-23 10:16] LABS: MANUAL DIFF FLAG NO
[2024-01-23 10:43] LABS: Basophils Percent Auto 0.6 % (0-2); Eosinophils Absolute Auto 0.1 X10*3/uL (0.0-0.4); Hematocrit 47.6 % (37.0-47.0); Hemoglobin 15.6 g/dl (12.0-16.0); Imm Gran Abs Auto 0.02 X10*3/uL (0.00-0.03); Imm Gran Pct Auto 0.3 % (0.0-0.4); Lymphocytes Absolute Auto 2.7 X10*3/uL (1.2-4.9); Lymphocytes Percent Auto 39.1 % (20-40); Mean Corpuscular HGB Conc 32.8 g/dl (31.0-35.0); Mean Corpuscular Hemoglobin 29.4 pg (27.0-33.0); Mean Corpuscular Volume 89.6 fL (80.0-98.0); Mean Platelet Volume 10.2 fL (9.4-12.3); Monocytes Absolute Auto 0.7 X10*3/uL (0.1-1.2); Monocytes Percent Auto 10.8 % (2-11); Neutrophils Absolute Auto 3.2 x10*3/uL (2.0-8.3); Neutrophils Percent Auto 47.2 % (45-73); Platelet Count 199 X10*3/uL (160-400); Red Blood Count 5.31 X10*6/uL (4.20-5.50); White Blood Count 6.9 X10*3/uL (4.8-10.8)
[2024-01-23 12:03] LABS: Alanine Aminotransferase 24 U/L (0-31); Albumin Level 4.2 g/dL (3.5-5.0); Alkaline Phosphatase 76 U/L (39-117); Anion Gap 12 (12-20); Aspartate Amino Transferase 21 U/L (5-31); Bilirubin Total 0.3 mg/dL (0.0-1.0); Blood Urea Nitrogen 22 mg/dL (9-16); Carbon Dioxide 23 mmol/L (22-29); Chloride 107 mmol/L (96-108); Cholesterol 220 mg/dL (<200); Estimated Glomerular Filt Rate 49; Glucose Fasting 106 mg/dL (60-99); HDL Cholesterol 38 mg/dL (>40); LDL Cholesterol Calculated 156 mg/dL (<100); Potassium 4.4 mmol/L (3.3-5.1); Sodium 138 mmol/L (135-145); Total Protein 7.9 g/dL (6.5-8.0); Triglycerides 131 mg/dL (<150)
== END 2024-01-23 08:18 | disposition home or self-care (01) ==
LOC: HO.HMGCLDS 08:17
PROVIDERS: PCP Internal Medicine; Visit Provider Internal Medicine
DX: I12.9 Hypertensive chronic kidney disease with stage 1 through stage 4 chronic kidney disease, or unspecified chronic kidney disease (principal); N18.30 Chronic kidney disease, stage 3 unspecified; M60.9 Myositis, unspecified; E03.9 Hypothyroidism, unspecified; E78.5 Hyperlipidemia, unspecified; R74.8 Abnormal levels of other serum enzymes
CPT/HCPCS: 36415; 80053; 80061; 82550; 84443; 85025

== ENCOUNTER 2024-01-23 08:31 | Outpatient (AMB) | payer MEDICARE, BC, SELFPAY ==
[2024-01-23 08:46] VITALS: BP 118/66; PULSE 74; O2SAT 96; BMI 35.6
--- NOTE | 2024-01-23 08:46 | A.OFFPC_ITS ---
Vital Signs 01/23/24 08:46 Height 5 ft 5 in Weight 214 lb BMI 35.6 BP 118/66 Blood Pressure Location Rt brachial Position Sitting Pulse 74 Pulse Source Pulse Oximeter Pulse Oximetry (%) 96 Oxygen Delivery Method Room Air Intake Visit Reasons: 2 month follow up Allergies pravastatin Allergy (Unknown, Verified 01/23/24 08:50) nausea rosuvastatin [From Crestor] Allergy (Verified 01/23/24 08:50) hives IV contrast Allergy (Unknown, Uncoded 01/23/24 08:50) rash SOB Medication List - Last Reconciled 01/23/24 by Akua Paige MD albuterol sulfate 90 mcg/actuation 2 puffs inhalation Q6H PRN levothyroxine 125 mcg PO DAILY olmesartan 5 mg PO DAILY Tobacco use date assessed: 11/22/23 Dental Screening Dental Screen Date: 11/22/23 HPI 2 month follow up HPI Details Patient presents for the follow-up on hypertension hypothyroidism stable on current medications. Patient reports leg cramps on and off worse at night she denies claudication. [facility], [facility] Medical History Hypothyroidism HTN (hypertension) Hyperlipidemia Nicotine dependence, cigarettes, uncomplicated Lung nodule < 6cm on CT Peptic ulcer disease Obesity History of mammogram Surgical History History of partial gastrectomy History of repair of right rotator cuff History of hysterectomy History of thyroidectomy History of esophagogastroduodenoscopy (EGD) History of colonoscopy Family History Father No problems noted. Mother Multiple sclerosis Social History Household Members: Spouse Housing: House Alcohol intake: current Alcohol intake frequency: does not drink Patient Tobacco Use Status: Current everyday Tobacco user Tobacco use type: Cigarette Cigarette Packs Per Day: 1 Cigarettes Per Day: 20 Years Smoked: (onset 18yo, 1ppd x 44yrs, 40pyh) e-Cigarette/Vaping Use: Never Used service: No Current occupational status: unemployed Cognitive needs: No Hearing needs: No Vision needs: No Questionnaire Thrive Questionnaire Date Thrive assessed: 11/22/23 ANIYA-7 AMB Questionnaire ANIYA-7 Date ANIYA - 7 assessed: 11/22/23 Source: Developed by DrsKrishna Prieto, Gavi Platt, Missael Chavez and colleagues, with an educational stevan from [employer]. Review of Systems Const All systems reviewed & are unremarkable except as noted in HPI and below Eyes Reports no additional complaints ENT Reports no additional complaints Card Reports no additional complaints Resp Reports no additional complaints GI Reports no additional complaints Reports no additional complaints Physical exam (Primary Care) Vital Signs: Last Vital Signs Pulse 74 01/23/24 08:46 BP 118/66 01/23/24 08:46 Pulse Ox 96 01/23/24 08:46 Oxygen Delivery Method Room Air 01/23/24 08:46 BMI result Body Mass Index 35.6 Tobacco/Smoking Status: Tobacco use Status Tobacco use date assessed 11/22/23 01/23/24 08:49 Patient Tobacco Use Status Current everyday Tobacco 01/23/24 08:49 Tobacco use type Cigarette 01/23/24 08:49 e-Cigarette/Vaping Use Never Used 01/23/24 08:49 Thrive Assessment: Date of Thrive Assessment Date Thrive assessed 11/22/23 01/23/24 08:49 Const General: no acute distress HENMT General nose exam: Normal external nose present Throat: Yes posterior oropharynx normal Neck Neck: Yes supple Resp Effort & Inspection: normal respiratory effort Auscultation: clear to auscultation bilaterally Cardio Rhythm: regular rhythm Heart sounds: S1 normal heart sound present and S2 normal heart sound present GI Inspection: Yes normal to inspection Palpation (GI): Soft to palpation Assessment and Plan Assessment & Plan (1) Hyperlipidemia: Comment: (Intolerant to statins) Code(s): E78.5 - Hyperlipidemia, unspecified Plan: Continue low-cholesterol diet and fish oil supplement (2) HTN (hypertension): Code(s): I10 - Essential (primary) hypertension Plan: Continue olmesartan. Patient had blood work this morning (3) Hypothyroidism: Comment: (acquired - s/p thyroidectomy) Code(s): E03.9 - Hypothyroidism, unspecified Plan: Continue levothyroxine (4) CKD (chronic kidney disease) stage 3, GFR 30-59 ml/min: Code(s): N18.30 - Chronic kidney disease, stage 3 unspecified Plan: Avoid nephrotoxins monitor renal function Orders: Orders Complete Blood Count Auto Diff 6 Months E03.9 - Hypothyroidism, unspecified, E78.5 - Hyperlipidemia, unspecified, I10 - Essential (primary) hypertension, N18.30 - Chronic kidney disease, stage 3 unspecified Comprehensive [place]. Panel Fast 6 Months E03.9 - Hypothyroidism, unspecified, E78.5 - Hyperlipidemia, unspecified, I10 - Essential (primary) hypertension, N18.30 - Chronic kidney disease, stage 3 unspecified Creatine Kinase Total 6 Months E03.9 - Hypothyroidism, unspecified, E78.5 - Hyperlipidemia, unspecified, I10 - Essential (primary) hypertension, N18.30 - Chronic kidney disease, stage 3 unspecified Lipid Panel 6 Months E03.9 - Hypothyroidism, unspecified, E78.5 - Hyperlipidemia, unspecified, I10 - Essential (primary) hypertension, N18.30 - Chronic kidney disease, stage 3 unspecified TSH reflex Free T4 6 Months E03.9 - Hypothyroidism, unspecified, E78.5 - Hyperlipidemia, unspecified, I10 - Essential (primary) hypertension, N18.30 - Chronic kidney disease, stage 3 unspecified Coding Level of Care Code Est Pt Level 4 (60938) Diagnoses Hyperlipidemia E78.5 HTN (hypertension) I10 Hypothyroidism E03.9 CKD (chronic kidney disease) stage 3, GFR 30-59 ml/min N18.30
== END 2024-01-23 09:25 | disposition home or self-care (01) ==
PROVIDERS: PCP Internal Medicine; Visit Provider Internal Medicine
DX: I12.9 Hypertensive chronic kidney disease with stage 1 through stage 4 chronic kidney disease, or unspecified chronic kidney disease (principal); N18.30 Chronic kidney disease, stage 3 unspecified; E78.5 Hyperlipidemia, unspecified; E03.9 Hypothyroidism, unspecified
CPT/HCPCS: 99214

== ENCOUNTER 2024-02-20 07:22 | Outpatient (AMB) | payer MEDICARE, BC, SELFPAY ==
--- NOTE | 2024-02-20 07:25 | A.OFFVIS_ITS ---
Vital Signs 02/20/24 07:26 Height 5 ft 5 in Weight 214 lb BMI 35.6 BP 138/76 Blood Pressure Location Rt brachial Position Sitting Respiration 17 Pulse 76 Pulse Source Palpation Intake Visit Reasons: INP Muscle disorder -Confirmed Intake Note: Pt presents tot he office for new pt evaluation for muscle disorder . Pt reports about a year ago she was walking and felt like she got tasered and collapsed. She says her whole body got stiff the weak. She denies losing consciousness. SHe has since had this same type of episode, but not as severe as the first time it happened. [employer] Required: No Allergies pravastatin Allergy (Unknown, Verified 02/20/24 07:26) nausea rosuvastatin [From Crestor] Allergy (Verified 02/20/24 07:26) hives IV contrast Allergy (Unknown, Uncoded 02/20/24 07:26) rash SOB Medication List - Last Reconciled 02/20/24 by Laurel Salguero MD albuterol sulfate 90 mcg/actuation 2 puffs inhalation Q6H PRN levothyroxine 125 mcg PO DAILY olmesartan 5 mg PO DAILY HPI Comments Details: 63y/o right handed female comes for evaluation of muscle stiffness.About 1 year ago she was at a family picnic around 11am , she was walking and suddenly felt stiff in her legs and her whole body and fell. she was in pain and the muscle were tight as per . Her started massaging her legs and the muscles felt hard. she was taken to local ER- she was given morphine and labetelol. Her muscle enzymes were high ? 5000 and she was admitted for 1 week in the hospital. she says she had extensive evaluation but does not know the details. she was told she was dehydrated and had kidney injury. she was started on a new antihypertensive 2 days prior to this episode and is wondering if that triggered. she is still on olmesartan . she still has very minor episodes 2-3 since then, she denies any cramping during sleep, denies neck or back pain. she has snoring and daytime fatigue. she also recalls having a reaction to statin 2 years ago -body aches and breathing issues. she denies any preceding illness, or strenuous activities, heat exhaustion etc. [facility] Medical History (Updated 02/21/24 @ 08:10 by Laurel Salguero MD) Snoring Hypothyroidism HTN (hypertension) Hyperlipidemia Nicotine dependence, cigarettes, uncomplicated Lung nodule < 6cm on CT Peptic ulcer disease Obesity History of mammogram Surgical History History of partial gastrectomy History of repair of right rotator cuff History of hysterectomy History of thyroidectomy History of esophagogastroduodenoscopy (EGD) History of colonoscopy Family History Father No problems noted. Mother Multiple sclerosis Social History Household Members: Spouse Housing: House Alcohol intake: current Alcohol intake frequency: does not drink Patient Tobacco Use Status: Current everyday Tobacco user Tobacco use type: Cigarette Cigarette Packs Per Day: 1 Cigarettes Per Day: 20 Years Smoked: (onset 18yo, 1ppd x 44yrs, 40pyh) e-Cigarette/Vaping Use: Never Used service: No Current occupational status: unemployed Cognitive needs: No Hearing needs: No Vision needs: No Physical Exam Vital Signs: Last Vital Signs Pulse 76 02/20/24 07:26 Resp 17 02/20/24 07:26 BP 138/76 02/20/24 07:26 BMI result Body Mass Index 35.6 Const General: cooperative, healthy appearing, comfortable and no acute distress Nutritional Appearance: obese Orientation/consciousness: patient oriented x3 Eyes Pupils: Equal, round and reactive pupils present Neuro Other: * Mallampatti grade 4 General: patient oriented x3, gait normal, tone normal, moves all extremities and no focal motor deficits Cranial nerves: Yes Facial sensation intact/muscles of mastication intact, Yes Equal, round and reactive pupils present, Yes Bilaterally intact EOM present, Yes Nystagmus not present, Yes Normal facial strength present, Yes Midline tongue present and Yes Symmetric palate elevation present Cognition (Neuro): normal cognition Gait exam (Neuro): Normal gait present Motor exam (neuro): 5/5 motor strength present throughout and Normal motor muscle tone present throughout Deep tendon reflexes (DTR's): Right triceps reflex intensity grade: 1+, Left triceps reflex intensity grade: 1+, Rt Biceps (C5, C6): 1+, Left biceps reflex intensity grade: 1+, Right brachioradialis reflex intensity grade: 0, Left brachioradialis reflex intensity grade: 0, Right patellar reflex intensity grade: 1+, Left patellar reflex intensity grade: 1+, Right ankle reflex intensity grade: 0 and Left ankle reflex intensity grade: 0 Coordination: [id number] test normal Assessment & Plan Assessment & Plan (1) Myositis: Comment: hospitalized in [place], Jul 0512/2022 Rhabdomyolysis ? Code(s): M60.9 - Myositis, unspecified Category: Medical (2) Elevated CK: Code(s): R74.8 - Abnormal levels of other serum enzymes Category: Medical (3) Snoring: Code(s): R06.83 - Snoring Category: Medical Plan Her CK is still elevated 400 1 month ago I will schedule an EMG to r/o underlying myopathy or myositis will consider genetic testing Review records form her hospitalization in [place] Home sleep test tor /o sleep apnea. Refer to Nephrology for opinion. Orders: Orders NE electromyogram (EMG) Today M60.9 - Myositis, unspecified, M62.89 - Other specified disorders of muscle, R74.8 - Abnormal levels of other serum enzymes NE nerve conduction velocity Today M60.9 - Myositis, unspecified, M62.89 - Other specified disorders of muscle, R74.8 - Abnormal levels of other serum enzymes Referrals Nephrology Referral I10 - Essential (primary) hypertension, M60.9 - Myositis, unspecified, M62.82 - Rhabdomyolysis Coding Level of Care Code New Pt Level 4 (17706) Complex EM visit Add On G2211 Diagnoses Myositis M60.9 Elevated CK R74.8 Snoring R06.83
[2024-02-20 07:26] VITALS: BP 138/76; PULSE 76; RESP 17; BMI 35.6
== END 2024-02-20 08:13 | disposition home or self-care (01) ==
PROVIDERS: PCP Internal Medicine; Visit Provider Psychiatry & Neurology Neurology
DX: M60.9 Myositis, unspecified (principal); R74.8 Abnormal levels of other serum enzymes; R06.83 Snoring
CPT/HCPCS: 99204; G2211

== ENCOUNTER → 2024-02-20 07:22 | Outpatient (BNVA) | payer MEDICARE, BC, SELFPAY | PROVIDERS: PCP Internal Medicine; Visit Provider Psychiatry & Neurology Neurology | DX: M60.9 Myositis, unspecified (principal); R74.8 Abnormal levels of other serum enzymes; R06.83 Snoring | CPT/HCPCS: 99202 ==

== ENCOUNTER 2024-02-28 08:43 | Outpatient (AMB) | payer MEDICARE, BC, SELFPAY ==
[2024-02-28 09:00] VITALS: BP 140/78; PULSE 72; O2SAT 97; BMI 35.8
--- NOTE | 2024-02-28 09:00 | HO.NEPHOV ---
Vital Signs 02/28/24 09:00 Height 5 ft 5 in Weight 215 lb BMI 35.8 BP 140/78 H Blood Pressure Location Lt brachial Position Sitting Pulse 72 Pulse Source Pulse Oximeter Pulse Oximetry (%) 97 Oxygen Delivery Method Room Air Intake Visit Reasons: hypertension/ Confirmed Inspector Brake Lining Required: No Accompanied by: Spouse Allergies pravastatin Allergy (Unknown, Verified 02/28/24 09:01) nausea rosuvastatin [From Crestor] Allergy (Verified 02/28/24 09:01) hives IV contrast Allergy (Unknown, Uncoded 02/20/24 07:26) rash SOB HPI Comments Details: Pawan is a pleasant 63-year-old woman with a history of hypertension and was found to have mild elevation in serum creatinine with EGFR for blood 50 mL/minutes. In May of 2023 she had an unprovoked episode of muscle stiffness. She felt like she was being tased. She was admitted to the ICU in [place] and was treated for rhabdomyolysis. CPK was as high as 6100. This gradually improved. Recently this CPK staying in the range of 250-400. She has undergone extensive workup for the same. She was seen by Rheumatology and basic serological workup was done. Myositis was ruled out. She is being evaluated by Neurology and scheduled for an EMG. She is not on any statins. She has history of intolerance to statins. She was tried on pravastatin, rosuvastatin and Zetia in the past. She has a history of hypertension. She is on Benicar 5 mg once a day. She tells me that the symptoms started after initiation of Benicar. In the past she was on amlodipine 2.5 mg which has been discontinued due to some side effect which she is not able to recall. She has no history of any dark urine. No urinary symptoms. No dysuria. No urgency. No back pain. No nausea vomiting. No change in weight. She has history of smoking up to 1 pack per day. [facility] Medical History (Updated 02/21/24 @ 08:10 by Laurel Salguero MD) Snoring Hypothyroidism HTN (hypertension) Hyperlipidemia Nicotine dependence, cigarettes, uncomplicated Lung nodule < 6cm on CT Peptic ulcer disease Obesity History of mammogram Surgical History History of partial gastrectomy History of repair of right rotator cuff History of hysterectomy History of thyroidectomy History of esophagogastroduodenoscopy (EGD) History of colonoscopy Family History Father No problems noted. Mother Multiple sclerosis Social History Household Members: Spouse Housing: House Alcohol intake: current Alcohol intake frequency: does not drink Patient Tobacco Use Status: Current everyday Tobacco user Tobacco use type: Cigarette Cigarette Packs Per Day: 1 Cigarettes Per Day: 20 Years Smoked: (onset 18yo, 1ppd x 44yrs, 40pyh) e-Cigarette/Vaping Use: Never Used service: No Current occupational status: unemployed Cognitive needs: No Hearing needs: No Vision needs: No Physical Exam Vital Signs: Last Vital Signs Pulse 72 02/28/24 09:00 BP 140/78 H 02/28/24 09:00 Pulse Ox 97 02/28/24 09:00 Oxygen Delivery Method Room Air 02/28/24 09:00 BMI result Body Mass Index 35.8 Const General: comfortable Nutritional Appearance: well nourished Orientation/consciousness: patient oriented x3 HEENT Head: No normal to inspection Mouth: moist mucous membranes Neck Neck: Yes supple and Yes no JVD Resp Auscultation: clear to auscultation bilaterally, no rales and rub present Cardio Jugular venous distension: no JVD Palpation: no palpable S3 and no palpable S4 Heart sounds: no rubs GI Palpation (GI): Soft to palpation and nontender Percussion: No Fluid wave present General: Yes no CVA tenderness Back/Spine/Pelvis Back: no CVA tenderness Skin General skin exam: no rashes or lesions noted Neuro General: patient oriented x3 Extrem General: Yes no pedal edema and No clubbing Results Reviewed Nephrology Results: Hgb 15.6 g/dl (12.0-16.0) 01/23/24 WBC 6.9 X10*3/uL (4.8-10.8) 01/23/24 Plt Count 199 X10*3/uL (160-400) 01/23/24 Sodium 138 mmol/L (135-145) 01/23/24 Potassium 4.4 mmol/L (3.3-5.1) 01/23/24 Chloride 107 mmol/L (96-108) 01/23/24 Carbon Dioxide 23 mmol/L (22-29) 01/23/24 BUN 22 mg/dL (9-16) H 01/23/24 Creatinine 1.11 mg/dL (0.5-1.4) 01/23/24 Calcium 9.0 mg/dL (8.4-10.2) 01/23/24 Assessment & Plan Assessment & Plan (1) HTN (hypertension): Code(s): I10 - Essential (primary) hypertension Category: Medical (2) CKD (chronic kidney disease) stage 3, GFR 30-59 ml/min: Code(s): N18.30 - Chronic kidney disease, stage 3 unspecified Category: Medical (3) Elevated CK: Code(s): R74.8 - Abnormal levels of other serum enzymes Category: Medical Plan . 63-year-old woman with a history of hypertension, elevated BMI and dyslipidemia has mild CKD with EGFR around 50-60 mL/minute. Over the last 3 years serum creatinine has been stable around 1.15 mg/dL. This might be her baseline. The EGFR reported might be an overestimation. I believe her renal function is slightly better than the reported EGFR. Recent imaging study did not reveal any obstruction. Urinalysis done in the past did not reveal any significant proteinuria or hematuria. Glomerulonephritis or interstitial disease seem unlikely at this point. Hypertension. Goal is to maintain blood pressure less than 130/80. With your permission I will switch olmesartan 5 mg to losartan 25 mg daily. Increase it to stand low-sodium diet. She will benefit from weight loss. Rhabdomyolysis. Etiology remains unclear. Workup in progress. Await EMG. Will check urinalysis. Orders: Orders UA and rflx microscopic Today I10 - Essential (primary) hypertension, N18.30 - Chronic kidney disease, stage 3 unspecified, R74.8 - Abnormal levels of other serum enzymes Phosphorus Today I10 - Essential (primary) hypertension, N18.30 - Chronic kidney disease, stage 3 unspecified, R74.8 - Abnormal levels of other serum enzymes Comprehensive Met. Panel Today I10 - Essential (primary) hypertension, N18.30 - Chronic kidney disease, stage 3 unspecified, N18.9 - Chronic kidney disease, unspecified, R74.8 - Abnormal levels of other serum enzymes Medications: New losartan 25 mg PO DAILY 90 tabs 0RF Discontinued olmesartan Discontinued Reason: Doctor's Order 5 mg PO DAILY 90 tabs 1RF Coding Level of Care Code New Pt Level 4 (95129) Diagnoses HTN (hypertension) I10 CKD (chronic kidney disease) stage 3, GFR 30-59 ml/min N18.30 Elevated CK R74.8
== END 2024-02-28 09:39 | disposition home or self-care (01) ==
PROVIDERS: PCP Internal Medicine; Referring Provider Psychiatry & Neurology Neurology; Visit Provider Internal Medicine Hypertension Specialist
DX: I10 Essential (primary) hypertension (principal); N18.30 Chronic kidney disease, stage 3 unspecified; R74.8 Abnormal levels of other serum enzymes
CPT/HCPCS: 99204

== ENCOUNTER → 2024-02-28 08:43 | Outpatient (BNVA) | payer MEDICARE, BC, SELFPAY | PROVIDERS: PCP Internal Medicine; Referring Provider Psychiatry & Neurology Neurology; Visit Provider Internal Medicine Hypertension Specialist | DX: I12.9 Hypertensive chronic kidney disease with stage 1 through stage 4 chronic kidney disease, or unspecified chronic kidney disease (principal); N18.30 Chronic kidney disease, stage 3 unspecified; R74.8 Abnormal levels of other serum enzymes | CPT/HCPCS: 36415; 80053; 81003; 84100; 99202 ==

== ENCOUNTER 2024-02-28 09:43 | Outpatient (REF) | payer MEDICARE, BC, SELFPAY ==
[2024-02-28 14:39] LABS: Appearance Urine Cloudy; Color Urine Yellow; Glucose Urine UA Negative (Negative); Leukocyte Esterase Urine Negative (Negative); Nitrite Urine Negative (Negative); PH 5.5 (5.0-9.0); Urine Blood Negative (Negative); Urine Ketones Negative (Negative); Urine Protein Negative (Neg-Trace)
[2024-02-28 15:09] LABS: Alanine Aminotransferase 20 U/L (0-31); Alkaline Phosphatase 78 U/L (39-117); Anion Gap 11 (12-20); Aspartate Amino Transferase 17 U/L (5-31); Bilirubin Total 0.3 mg/dL (0.0-1.0); Blood Urea Nitrogen 13 mg/dL (9-16); Calcium 8.8 mg/dL (8.4-10.2); Carbon Dioxide 24 mmol/L (22-29); Chloride 110 mmol/L (96-108); Estimated Glomerular Filt Rate 52; Glucose Random 99 mg/dL (60-115); Phosphorus 3.3 mg/dL (2.7-4.5); Potassium 4.1 mmol/L (3.3-5.1); Sodium 141 mmol/L (135-145); Total Protein 7.1 g/dL (6.5-8.0)
== END 2024-02-28 09:44 | disposition home or self-care (01) ==
LOC: HO.HKASLDS 09:43
PROVIDERS: Visit Provider Internal Medicine Hypertension Specialist
DX: Z13.89 Encounter for screening for other disorder (principal)
CPT/HCPCS: 36415; 80053; 81003; 84100

== ENCOUNTER 2024-03-01 08:15 | Outpatient (REF) | payer MEDICARE, BC, SELFPAY ==
--- NOTE | 2024-03-01 08:19 | EMG_ITS ---
Chief complaint: Last 05/2023, patient was hospitalized for muscle ?freezing ? that lasted 1 week. Found to have elevated CK. Since then, she has had 5 episodes, lasting few minutes at the most only. Last episode was 2 months ago. Episodes would affect right upper extremity and both legs. History of diabetes, hypertension and thyroid surgery. Exam today did not show proximal or distal muscle weakness. No atrophy. Reason for referral: Evaluate for myopathy Referred by: Dr. Salguero Procedure done: Right upper extremity, bilateral lower extremities, NCS/EMG Precautions and/or limitations: None The limb temperature was monitored continuously and remained between 32-36 degrees C during the performance of the NCS. Nerve Conduction Studies Anti Sensory Summary Table ?Stim Site NR Onset (ms) Norm Onset (ms) Peak (ms) Norm Peak (ms) O-P Amp (?V) Norm O-P Amp Site1 Site2 Delta-0 (ms) Dist (cm) John (m/s) Norm John (m/s) Right Median Anti Sensory (2nd Digit) Wrist ? 2.9 3.6 <3.6 29.6 >10 Wrist 2nd Digit 2.9 14.0 48 Right Radial Anti Sensory (Thumb) Forearm ? 1.4 2.0 <3.1 43.3 Forearm Thumb 1.4 0.0 Left Sural Anti Sensory (Lat Mall) Calf ? 3.1 3.9 <4.0 11.7 >5.0 Calf Lat Mall 3.1 14.0 45 Right Sural Anti Sensory (Lat Mall) Calf ? 3.0 3.8 <4.0 12.4 >5.0 Calf Lat Mall 3.0 14.0 47 Right Ulnar Anti Sensory (5th Digit) Wrist ? 2.1 3.3 <3.7 18.4 >15.0 Wrist 5th Digit 2.1 14.0 67 Motor Summary Table ?Stim Site NR Onset (ms) Norm Onset (ms) O-P Amp (mV) Norm O-P Amp iAmp (mV) Amp (1st) (%) Site1 Site2 Delta-0 (ms) Dist (cm) John (m/s) Norm John (m/s) Right Median Motor (Abd Poll Brev) Wrist ? 3.6 <3.9 11.0 >4.5 13.1 100.0 Elbow Wrist 4.1 20.0 49 >45 Elbow ? 7.7 10.6 12.6 96.4 Right Peroneal Motor (Ext Dig Brev) Ankle ? 3.4 <4.0 11.2 >2.5 13.5 100.0 Ankle Ext Dig Brev 3.4 0.0 B Fib ? 10.2 10.6 12.4 94.6 B Fib Ankle 6.8 31.0 46 >40 Poplt ? 10.9 10.7 12.4 95.5 Poplt B Fib 0.7 5.0 71 >40 Left Tibial Motor (Abd Zamora Brev) Ankle ? 4.8 <5 8.5 >2.5 12.1 100.0 Ankle Abd Zamora Brev 4.8 0.0 Knee ? 10.6 4.5 6.9 52.9 Knee Ankle 5.8 36.0 62 >40 Right Tibial Motor (Abd Zamora Brev) Ankle ? 4.6 <5 6.5 >2.5 8.2 100.0 Ankle Abd Zamora Brev 4.6 0.0 Knee ? 10.9 7.1 9.1 109.2 Knee Ankle 6.3 36.0 57 >40 Right Ulnar Motor (Abd Dig Minimi) Wrist ? 2.6 <3.0 12.0 >5 14.1 100.0 B Elbow Wrist 3.7 19.0 51 >45 B Elbow ? 6.3 11.6 13.6 96.7 A Elbow B Elbow 1.4 10.0 71 >45 A Elbow ? 7.7 11.1 13.1 92.5 EMG ?Side Muscle Nerve Root Ins Act Fibs Psw Amp Dur Poly Recrt Int Pat Comment Right 1stDorInt Ulnar C8-T1 Nml Nml Nml Nml Nml 0 Nml Complete Right FlexCarRad Median C6-7 Nml Nml Nml Nml Nml 0 Nml Complete Right Biceps Musculocut C5-6 Nml Nml Nml Nml Nml 0 Nml Complete Right Triceps Radial C6-7-8 Nml Nml Nml Nml Nml 0 Nml Complete Right Deltoid Axillary C5-6 Nml Nml Nml Nml Nml 0 Nml Complete Right AbdHallucis MedPlantar S1-2 Nml Nml Nml Nml Nml 0 Nml Complete Right AntTibialis Dp Br Peron L4-5 Nml Nml Nml Nml Nml 0 Nml Complete myotonic discharge Right PostTibialis Tibial L5, S1 Nml Nml Nml Nml Nml 0 Nml Complete Right MedGastroc Tibial S1-2 Nml Nml Nml Nml Nml 0 Nml Complete Right RectFemoris Femoral L2-4 Nml Nml Nml Nml Nml 0 Nml Complete Right VastusMed Femoral L2-4 Nml Nml Nml Nml Nml 0 Nml Complete Left AbdHallucis MedPlantar S1-2 Nml Nml Nml Nml Nml 0 Nml Complete Left AntTibialis Dp Br Peron L4-5 Nml Nml Nml Nml Nml 0 Nml Complete Left PostTibialis Tibial L5, S1 Nml Nml Nml Nml Nml 0 Nml Complete Left MedGastroc Tibial S1-2 Nml Nml Nml Nml Nml 0 Nml Complete Left RectFemoris Femoral L2-4 Nml Nml Nml Nml Nml 0 Nml Complete Paraspinal EMG ?Side Muscle Nerve Root Ins Act Fibs Psw Comment Right Cervical Upper Rami Nml Nml Nml Right Cervical Mid Rami Nml Nml Nml Right Cervical Lower Rami Nml Nml Nml Right Lumbar Upper Rami Nml Nml Nml Right Lumbar Mid Rami Nml Nml Nml Right Lumbar Lower Rami Nml Nml Nml Left Lumbar Upper Rami Nml Nml Nml Left Lumbar Mid Rami Nml Nml Nml Left Lumbar Lower Rami Incr 1+ 1+ FINDINGS: All motor and sensory nerves tested on right upper extremity and bilateral lower extremities showed normal latencies, amplitudes and conduction velocities. Concentric needle EMG was performed in selected muscles of the right upper extremity, bilateral lower extremities, right cervical paraspinals, bilateral lumbar paraspinals. Study revealed signs of electric abnormalities as shown in the table above. Right TA showed appearance of PSWs that was waxing and waning, suspect this was a myotonic discharge. Left lower lumbar paraspinals showed increased insertional activity, PSWs and fibrillations. IMPRESSION: 1. This is an abnormal study. 2. Findings of myotonic discharge and denervation in the most proximal muscle tested, in addition to her history and elevated CK, are suggestive of a myopathic disorder. 3. There is no electrodiagnostic evidence for median neuropathy, ulnar neuropathy, brachial plexopathy, or cervical radiculopathy on the right upper extremity; no evidence for peroneal neuropathy, tibial neuropathy. lumbosacral plexopathy, lumbar radiculopathy, or peripheral neuropathy. CLINICAL COMMENT: Consider muscle biopsy for more definitive diagnosis (suggest biopsy of left gluteus muscle). Thank you for your kind referral. Patsy Booker MD, LAURA Board Certified, [place] [employer] (ABPMR) Board Certified, [place] [employer] Electro[employer] (ABEM) CODIN [id number] x 3 MTDD
== END 2024-03-01 08:16 | disposition home or self-care (01) ==
LOC: HO.NEURO 08:15
PROVIDERS: PCP Internal Medicine; Visit Provider Psychiatry & Neurology Neurology
DX: M62.89 Other specified disorders of muscle (principal); M60.9 Myositis, unspecified; R74.8 Abnormal levels of other serum enzymes; R94.130 Abnormal response to nerve stimulation, unspecified
CPT/HCPCS: 95886; 95911

== ENCOUNTER → 2024-03-01 08:19 | Outpatient (BNV) | payer MEDICARE, BC, SELFPAY | PROVIDERS: PCP Internal Medicine; Visit Provider Physical Medicine & Rehabilitation | DX: M62.89 Other specified disorders of muscle (principal); M60.9 Myositis, unspecified | CPT/HCPCS: 95886; 95911 ==

== ENCOUNTER 2024-03-27 08:15 | Outpatient (AMB) | payer MEDICARE, BC, SELFPAY ==
[2024-03-27 08:28] VITALS: BP 132/80; PULSE 76; O2SAT 95; BMI 35.3
--- NOTE | 2024-03-27 08:28 | HO.NEPHOV ---
Vital Signs 03/27/24 08:28 Height 5 ft 5 in Weight 212 lb BMI 35.3 BP 132/80 Blood Pressure Location Lt brachial Position Sitting Pulse 76 Pulse Source Pulse Oximeter Pulse Oximetry (%) 95 Oxygen Delivery Method Room Air Intake Visit Reasons: 4 wks follow up/ Conf Solar Crew Member Required: No Accompanied by: Spouse Allergies pravastatin Allergy (Unknown, Verified 03/27/24 08:31) nausea rosuvastatin [From Crestor] Allergy (Verified 03/27/24 08:31) hives IV contrast Allergy (Unknown, Uncoded 02/20/24 07:26) rash SOB Medication List - Last Reconciled 03/27/24 by Sohan Salguero MD albuterol sulfate 90 mcg/actuation 2 puffs inhalation Q6H PRN levothyroxine 125 mcg PO DAILY losartan 25 mg PO DAILY HPI Comments Details: Pawan is a pleasant 63-year-old woman with a history of hypertension and was found to have mild elevation in serum creatinine with EGFR for blood 50 mL/minutes. In May of 2023 she had an unprovoked episode of muscle stiffness. She felt like she was being tased. She was admitted to the ICU in [place] and was treated for rhabdomyolysis. CPK was as high as 6100. This gradually improved. Recently this CPK staying in the range of 250-400. She has undergone extensive workup for the same. She was seen by Rheumatology and basic serological workup was done. Myositis was ruled out. She is being evaluated by Neurology and scheduled for an EMG. She is not on any statins. She has history of intolerance to statins. She was tried on pravastatin, rosuvastatin and Zetia in the past. She has a history of hypertension. She is on Benicar 5 mg once a day. She tells me that the symptoms started after initiation of Benicar. In the past she was on amlodipine 2.5 mg which has been discontinued due to some side effect which she is not able to recall. She has no history of any dark urine. No urinary symptoms. No dysuria. No urgency. No back pain. No nausea vomiting. No change in weight. She has history of smoking up to 1 pack per day. 03/27/24 She has been experiencing muscle cramps on and off especially after drinking lemonade. She underwent EMG. Results were reviewed. [facility] Medical History (Updated 02/21/24 @ 08:10 by Laurel Salguero MD) Snoring Hypothyroidism HTN (hypertension) Hyperlipidemia Nicotine dependence, cigarettes, uncomplicated Lung nodule < 6cm on CT Peptic ulcer disease Obesity History of mammogram Surgical History History of partial gastrectomy History of repair of right rotator cuff History of hysterectomy History of thyroidectomy History of esophagogastroduodenoscopy (EGD) History of colonoscopy Family History Father No problems noted. Mother Multiple sclerosis Social History Household Members: Spouse Housing: House Alcohol intake: current Alcohol intake frequency: does not drink Patient Tobacco Use Status: Current everyday Tobacco user Tobacco use type: Cigarette Cigarette Packs Per Day: 1 Cigarettes Per Day: 20 Years Smoked: (onset 18yo, 1ppd x 44yrs, 40pyh) e-Cigarette/Vaping Use: Never Used service: No Current occupational status: unemployed Cognitive needs: No Hearing needs: No Vision needs: No Physical Exam Vital Signs: Last Vital Signs Pulse 76 03/27/24 08:28 BP 132/80 03/27/24 08:28 Pulse Ox 95 03/27/24 08:28 Oxygen Delivery Method Room Air 03/27/24 08:28 BMI result Body Mass Index 35.3 Results Reviewed Results Reviewed: EMG/nerve conduction study FINDINGS: All motor and sensory nerves tested on right upper extremity and bilateral lower extremities showed normal latencies, amplitudes and conduction velocities. Concentric needle EMG was performed in selected muscles of the right upper extremity, bilateral lower extremities, right cervical paraspinals, bilateral lumbar paraspinals. Study revealed signs of electric abnormalities as shown in the table above. Right TA showed appearance of PSWs that was waxing and waning, suspect this was a myotonic discharge. Left lower lumbar paraspinals showed increased insertional activity, PSWs and fibrillations. IMPRESSION: 1. This is an abnormal study. 2. Findings of myotonic discharge and denervation in the most proximal muscle tested, in addition to her history and elevated CK, are suggestive of a myopathic disorder. 3. There is no electrodiagnostic evidence for median neuropathy, ulnar neuropathy, brachial plexopathy, or cervical radiculopathy on the right upper extremity; no evidence for peroneal neuropathy, tibial neuropathy. lumbosacral plexopathy, lumbar radiculopathy, or peripheral neuropathy. CLINICAL COMMENT: Consider muscle biopsy for more definitive diagnosis (suggest biopsy of left gluteus muscle). Nephrology Results: Hgb 15.6 g/dl (12.0-16.0) 01/23/24 WBC 6.9 X10*3/uL (4.8-10.8) 01/23/24 Plt Count 199 X10*3/uL (160-400) 01/23/24 Sodium 141 mmol/L (135-145) 02/28/24 Potassium 4.1 mmol/L (3.3-5.1) 02/28/24 Chloride 110 mmol/L (96-108) H 02/28/24 Carbon Dioxide 24 mmol/L (22-29) 02/28/24 BUN 13 mg/dL (9-16) 02/28/24 Creatinine 1.06 mg/dL (0.5-1.4) 02/28/24 Calcium 8.8 mg/dL (8.4-10.2) 02/28/24 Phosphorus 3.3 mg/dL (2.7-4.5) 02/28/24 Urine Protein Negative mg/dL (Neg-Trace) 02/28/24 Assessment & Plan Assessment & Plan (1) HTN (hypertension): Code(s): I10 - Essential (primary) hypertension Category: Medical (2) CKD (chronic kidney disease) stage 3, GFR 30-59 ml/min: Code(s): N18.30 - Chronic kidney disease, stage 3 unspecified Category: Medical (3) Elevated CK: Code(s): R74.8 - Abnormal levels of other serum enzymes Category: Medical (4) Myositis: Comment: hospitalized in [place], Jul 0512/2022 Rhabdomyolysis ? Code(s): M60.9 - Myositis, unspecified Category: Medical (5) Muscle stiffness: Code(s): M62.89 - Other specified disorders of muscle Category: Medical Plan . 63-year-old woman with a history of hypertension, elevated BMI and dyslipidemia has mild CKD with EGFR around 50-60 mL/minute. Over the last 3 years serum creatinine has been stable around 1.15 mg/dL. Renal function is at baseline. The EGFR reported might be an overestimation. I believe her renal function is slightly better than the reported EGFR. Recent imaging study did not reveal any obstruction. Urinalysis done in the past did not reveal any significant proteinuria or hematuria. Glomerulonephritis or interstitial disease seem unlikely at this point. Hypertension. Goal is to maintain blood pressure less than 130/80. Keep losartan 25 mg daily. Encouraged to stay on a low-sodium diet. She will benefit from weight loss. Rhabdomyolysis. Etiology remains unclear. Workup in progress. Status post EMG. Shall order muscle biopsy as recommended by EMG results Orders: Orders CT biopsy muscle Today M60.9 - Myositis, unspecified, M62.89 - Other specified disorders of muscle Complete Blood Count Auto Diff 6 Months M60.9 - Myositis, unspecified, M62.89 - Other specified disorders of muscle Comprehensive Met. Panel 6 Months M60.9 - Myositis, unspecified, M62.89 - Other specified disorders of muscle UA and rflx microscopic 6 Months M60.9 - Myositis, unspecified, M62.89 - Other specified disorders of muscle Coding Level of Care Code Est Pt Level 4 (46889) Diagnoses HTN (hypertension) I10 CKD (chronic kidney disease) stage 3, GFR 30-59 ml/min N18.30 Elevated CK R74.8 Myositis M60.9 Muscle stiffness M62.89
== END 2024-03-27 08:53 | disposition home or self-care (01) ==
PROVIDERS: PCP Internal Medicine; Visit Provider Internal Medicine Hypertension Specialist
DX: I10 Essential (primary) hypertension (principal); N18.30 Chronic kidney disease, stage 3 unspecified; R74.8 Abnormal levels of other serum enzymes; M60.9 Myositis, unspecified; M62.89 Other specified disorders of muscle
CPT/HCPCS: 99214

== ENCOUNTER → 2024-03-27 08:15 | Outpatient (BNVA) | payer MEDICARE, BC, SELFPAY | PROVIDERS: PCP Internal Medicine; Visit Provider Internal Medicine Hypertension Specialist | DX: I12.9 Hypertensive chronic kidney disease with stage 1 through stage 4 chronic kidney disease, or unspecified chronic kidney disease (principal); N18.30 Chronic kidney disease, stage 3 unspecified; R74.8 Abnormal levels of other serum enzymes; M60.9 Myositis, unspecified; M62.89 Other specified disorders of muscle | CPT/HCPCS: 99212 ==

== ENCOUNTER 2024-04-25 07:55 | Outpatient (AMB) | payer MEDICARE, BC, SELFPAY ==
--- NOTE | 2024-04-25 07:57 | MHC.OFFVIS ---
Vital Signs 04/25/24 07:58 Height 5 ft 5 in Weight 212 lb BMI 35.3 BP 124/74 Blood Pressure Location Rt brachial Position Sitting Respiration 16 Pulse 70 Pulse Source Pulse Oximeter Pulse Oximetry (%) 97 Oxygen Delivery Method Room Air Intake Visit Reasons: follow up Muscle disorder - Confirmed Intake Note: Pt presents for a 2 month follow up for elevated CK and to discuss results of nerve conduction study and EMG. Landscape Foreman Required: No Allergies pravastatin Allergy (Unknown, Verified 04/25/24 07:57) nausea rosuvastatin [From Crestor] Allergy (Verified 04/25/24 07:57) hives IV contrast Allergy (Unknown, Uncoded 04/25/24 07:57) rash SOB Medication List - Last Reconciled 04/25/24 by Laurel Salguero MD albuterol sulfate 90 mcg/actuation 2 puffs inhalation Q6H PRN levothyroxine 125 mcg PO DAILY losartan 25 mg PO DAILY HPI Comments Details: 63y/o right handed female comes for follow up of muscle stiffness. she had EMG which was c/w possible myopathy of unknown origin she was seen by Rheumatology and labs were not c/w myositis she denies any new symptoms, like weakness pain stiffness etc Prior history-. About 1 year ago she was at a family picnic around 11am , she was walking and suddenly felt stiff in her legs and her whole body and fell. she was in pain and the muscle were tight as per . Her started massaging her legs and the muscles felt hard. she was taken to local ER- she was given morphine and labetelol. Her muscle enzymes were high ? 5000 and she was admitted for 1 week in the hospital. she says she had extensive evaluation but does not know the details. she was told she was dehydrated and had kidney injury. she was started on a new antihypertensive 2 days prior to this episode and is wondering if that triggered. she is still on olmesartan . she still has very minor episodes 2-3 since then, she denies any cramping during sleep, denies neck or back pain. she has snoring and daytime fatigue. she also recalls having a reaction to statin 2 years ago -body aches and breathing issues. she denies any preceding illness, or strenuous activities, heat exhaustion etc. [facility] Medical History Myopathy CKD (chronic kidney disease) stage 3, GFR 30-59 ml/min HTN (hypertension) Hyperlipidemia Hypothyroidism Peptic ulcer disease Nicotine dependence, cigarettes, uncomplicated Lung nodule < 6cm on CT Obesity Snoring History of mammogram Surgical History History of partial gastrectomy History of repair of right rotator cuff History of hysterectomy History of thyroidectomy History of esophagogastroduodenoscopy (EGD) History of colonoscopy Family History Father No problems noted. Mother Multiple sclerosis Social History Household Members: Spouse Housing: House Alcohol intake: current Alcohol intake frequency: does not drink Patient Tobacco Use Status: Current everyday Tobacco user Tobacco use type: Cigarette Cigarette Packs Per Day: 1 Cigarettes Per Day: 20 Years Smoked: (onset 18yo, 1ppd x 44yrs, 40pyh) e-Cigarette/Vaping Use: Never Used service: No Current occupational status: unemployed Cognitive needs: No Hearing needs: No Vision needs: No Physical Exam Vital Signs: Last Vital Signs Pulse 70 04/25/24 07:58 Resp 16 04/25/24 07:58 BP 124/74 04/25/24 07:58 Pulse Ox 97 04/25/24 07:58 Oxygen Delivery Method Room Air 04/25/24 07:58 BMI result Body Mass Index 35.3 Const General: cooperative, healthy appearing, comfortable and no acute distress Nutritional Appearance: obese Orientation/consciousness: patient oriented x3 Eyes Pupils: Equal, round and reactive pupils present Neuro Other: Mallampatti grade 4 General: patient oriented x3, gait normal, tone normal, moves all extremities and no focal motor deficits Cranial nerves: Yes Facial sensation intact/muscles of mastication intact, Yes Equal, round and reactive pupils present, Yes Bilaterally intact EOM present, Yes Nystagmus not present, Yes Normal facial strength present, Yes Midline tongue present and Yes Symmetric palate elevation present Cognition (Neuro): normal cognition Gait exam (Neuro): Normal gait present Motor exam (neuro): 5/5 motor strength present throughout and Normal motor muscle tone present throughout Deep tendon reflexes (DTR's): Right triceps reflex intensity grade: 1+, Left triceps reflex intensity grade: 1+, Rt Biceps (C5, C6): 1+, Left biceps reflex intensity grade: 1+, Right brachioradialis reflex intensity grade: 0, Left brachioradialis reflex intensity grade: 0, Right patellar reflex intensity grade: 1+, Left patellar reflex intensity grade: 1+, Right ankle reflex intensity grade: 0 and Left ankle reflex intensity grade: 0 Coordination: [id number] test normal Assessment & Plan Assessment & Plan (1) Myopathy: Code(s): G72.9 - Myopathy, unspecified Category: Medical (2) Elevated CK: Code(s): R74.8 - Abnormal levels of other serum enzymes Category: Medical Plan Reviewed renal notes , EMG results I will schedule her for muscle biopsy . Orders: Referrals General Surgery Referral G72.9 - Myopathy, unspecified Coding Level of Care Code Est Pt Level 4 (79121) Diagnoses Myopathy G72.9 Elevated CK R74.8
[2024-04-25 07:58] VITALS: BP 124/74; PULSE 70; RESP 16; O2SAT 97; BMI 35.3
== END 2024-04-25 08:37 | disposition home or self-care (01) ==
PROVIDERS: PCP Internal Medicine; Visit Provider Psychiatry & Neurology Neurology
DX: G72.9 Myopathy, unspecified (principal); R74.8 Abnormal levels of other serum enzymes
CPT/HCPCS: 99214

== ENCOUNTER → 2024-04-25 07:55 | Outpatient (BNVA) | payer MEDICARE, BC, SELFPAY | PROVIDERS: PCP Internal Medicine; Visit Provider Psychiatry & Neurology Neurology | DX: G72.9 Myopathy, unspecified (principal); R74.8 Abnormal levels of other serum enzymes | CPT/HCPCS: 99212 ==

== ENCOUNTER 2024-05-06 08:05 | Outpatient (AMB) | payer MEDICARE, BC, SELFPAY ==
[2024-05-06 08:07] VITALS: BP 132/74; PULSE 67; O2SAT 98; BMI 35.3
--- NOTE | 2024-05-06 08:07 | A.OFFPC_ITS ---
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 Accompanied by: Self / Same As Patient Allergies pravastatin Allergy (Unknown, Verified 05/06/24 08:08) nausea rosuvastatin [From Crestor] Allergy (Verified 05/06/24 08:08) hives ezetimibe [From Zetia] Adverse Reaction (Verified 05/06/24 08:32) Myalgia IV contrast Allergy (Unknown, Uncoded 04/25/24 07:57) rash SOB Medication List - Last Reconciled 05/06/24 by Akua Paige MD albuterol sulfate 90 mcg/actuation 2 puffs inhalation Q6H PRN levothyroxine 125 mcg PO DAILY losartan 25 mg PO DAILY Tobacco use date assessed: 05/06/24 Fall risk assessment: No Falls in past year Last assessed Fall Risk: 05/06/24 Dental Screening Dental Screen Date: 11/22/23 HPI Annual PE HPI Details pt presents for PE PFSH Medical History Myopathy CKD (chronic kidney disease) stage 3, GFR 30-59 ml/min HTN (hypertension) Hyperlipidemia Hypothyroidism Peptic ulcer disease Nicotine dependence, cigarettes, uncomplicated Lung nodule < 6cm on CT Obesity Snoring History of mammogram Surgical History History of partial gastrectomy History of repair of right rotator cuff History of hysterectomy History of thyroidectomy History of esophagogastroduodenoscopy (EGD) History of colonoscopy Family History Father No problems noted. Mother Multiple sclerosis Social History Household Members: Spouse Housing: House Alcohol intake: current Alcohol intake frequency: does not drink Patient Tobacco Use Status: Current everyday Tobacco user Tobacco use type: Cigarette Cigarette Packs Per Day: 1 Cigarettes Per Day: 20 Years Smoked: (onset 18yo, 1ppd x 44yrs, 40pyh) e-Cigarette/Vaping Use: Never Used service: No Current occupational status: unemployed Cognitive needs: No Hearing needs: No Vision needs: No Questionnaire PHQ-9 Over the last 2 weeks, how often have you been bothered by any of the following problems? 1. Little interest or pleasure in doing things: not at all 2. Feeling down, depressed, or hopeless: not at all 3. Trouble falling or staying asleep, or sleeping too much: not at all 4. Feeling tired or having little energy: not at all 5. Poor appetite or overeating: not at all 6. Feeling bad about yourself - or that you are a failure or have let yourself or your family down: not at all 7. Trouble concentrating on things, such as reading the newspaper or watching television: not at all 8. Moving or speaking so slowly that other people could have noticed. Or the opposite - being so fidgety or restless that you have been moving around a lot more than usual: not at all 9. Thoughts that you would be better off or of hurting yourself in some way: not at all Total score: 0 Depression Screening Interpretation: Negative Depression Screening Done: Yes Source: Developed by Drs. Richard Prieto, Gavi Platt, Missael Chavez and colleagues, with an educational stevan from [employer]. Thrive Questionnaire Date Thrive assessed: 05/06/24 I am a: Patient What is your living situation today?: I have a steady place to live Within the past 12 months, did the food you bought not last and you didn't have the money to get more?: Never true Within the past 12 months, did you worry whether your food would run out before you got money to buy more?: Never true Do you have trouble paying for medicines?: No Do you have trouble getting transportation to medical appointments?: No Do you have trouble paying your heating and electricity bill?: No Do you have trouble taking care of your child, family member or friend?: No Do you have trouble with day-to-day activities such as bathing, preparing meals, shopping, managing finances, etc.?: No Are you currently unemployed and looking for a job?: No Are you interested in more education?: I choose not to answer this question Please select the resources that you would like help with: Housing/Intermediate Currently or been in a relationship where the following occur: No concerns reported THRIVE Score: 0 AUDIT C Alcohol Use Questionnaire (AUDIT-C) 1. How often do you have a drink containing alcohol?: Never 3. How often do you have six or more drinks on one occasion?: Never Total Score: 0 Score Reviewed/Action Taken: Yes ANIYA-7 AMB Questionnaire ANIYA-7 Date ANIYA - 7 assessed: 05/06/24 Feeling nervous, anxious, or on edge: 0 = Not at all Not being able to stop or control worryin = Not at all Worrying too much about different things: 0 = Not at all Trouble relaxin = Not at all Being so restless that it is hard to sit still: 0 = Not at all Becoming easily annoyed or irritable: 0 = Not at all Feeling afraid as if something awful might happen: 0 = Not at all Total ANIYA-7 score (0-4 normal; 5-9 mild; 10-14 moderate; 15-21 severe): 0 Source: Developed by Drs. Richard Prieto, Gavi Platt, Missael Chavez and colleagues, with an educational stevan from [employer]. ANIYA-7 Assessment Billing ANIYA-7 Assessment Tool: ANIYA-7 Assessment 93820 Review of Systems Const All systems reviewed & are unremarkable except as noted in HPI and below Reports no additional complaints Eyes Reports no additional complaints ENT Reports no additional complaints Card Reports no additional complaints Resp Reports no additional complaints GI Reports no additional complaints Reports no additional complaints Physical exam (Primary Care) Vital Signs: Last Vital Signs Pulse 67 05/06/24 08:07 BP 132/74 05/06/24 08:07 Pulse Ox 98 05/06/24 08:07 Oxygen Delivery Method Room Air 05/06/24 08:07 BMI result Body Mass Index 35.3 Tobacco/Smoking Status: Tobacco use Status Tobacco use date assessed 05/06/24 05/06/24 08:09 Patient Tobacco Use Status Current everyday Tobacco 05/06/24 08:09 Tobacco use type Cigarette 05/06/24 08:09 e-Cigarette/Vaping Use Never Used 05/06/24 08:09 PHQ-9: PHQ-9 Score PHQ-9: Total score 0 05/06/24 08:09 Depression Screening Interpretation: Negative Thrive Assessment: Date of Thrive Assessment Date Thrive assessed 05/06/24 05/06/24 08:09 Currently or been in a relationship where the following occur: No concerns reported Const General: no acute distress HENMT Head: Yes normal to inspection General nose exam: Normal external nose present Face and sinus: Yes normal facial exam Mouth: Normal oral and palatal mucosa present Throat: Yes posterior oropharynx normal Eyes General: appearance normal, both eyes and all related structures Neck Neck: Yes no lymphadenopathy and Yes supple Resp Effort & Inspection: normal respiratory effort Auscultation: clear to auscultation bilaterally Cardio Rhythm: regular rhythm Heart sounds: S1 normal heart sound present and S2 normal heart sound present GI Inspection: Yes normal to inspection Palpation (GI): Soft to palpation Percussion: Yes normal to percussion Auscultation: normal bowel sounds Assessment and Plan Assessment & Plan (1) HTN (hypertension): Code(s): I10 - Essential (primary) hypertension Plan: cont Losartan (2) Annual physical exam: Code(s): Z00.00 - Encounter for general adult medical examination without abnormal findings Plan: well balanced diet, regular exercise, patient is up-to-date with the mammogram colonoscopy. She will have a screening CT of the chest in June (3) CKD (chronic kidney disease) stage 3, GFR 30-59 ml/min: Code(s): N18.30 - Chronic kidney disease, stage 3 unspecified Plan: Avoid nephrotoxins monitor renal function follow-up with the Nephrology (4) Hypothyroidism: Comment: (acquired - s/p thyroidectomy) Code(s): E03.9 - Hypothyroidism, unspecified Plan: Continue levothyroxine check TSH (5) Nicotine dependence, cigarettes, uncomplicated: Comment: (current smoker - onset 18yo, 1ppd x 44yrs, 40pyh) Code(s): F17.210 - Nicotine dependence, cigarettes, uncomplicated Plan: Tobacco quitting discussed with the patient (6) Myopathy: Code(s): G72.9 - Myopathy, unspecified Plan: Follow-up with Neurology for muscle biopsy Orders: Orders Lipid Panel 6 Months I10 - Essential (primary) hypertension, N18.30 - Chronic kidney disease, stage 3 unspecified, Z00.00 - Encounter for general adult medical examination without abnormal findings TSH reflex Free T4 6 Months I10 - Essential (primary) hypertension, N18.30 - Chronic kidney disease, stage 3 unspecified, Z00.00 - Encounter for general adult medical examination without abnormal findings UA w Microscopic 6 Months I10 - Essential (primary) hypertension, N18.30 - Chronic kidney disease, stage 3 unspecified, Z00.00 - Encounter for general adult medical examination without abnormal findings Comprehensive [place]. Panel Fast 6 Months I10 - Essential (primary) hypertension, N18.30 - Chronic kidney disease, stage 3 unspecified, Z00.00 - Encounter for general adult medical examination without abnormal findings Complete Blood Count Auto Diff 6 Months I10 - Essential (primary) hypertension, N18.30 - Chronic kidney disease, stage 3 unspecified, Z00.00 - Encounter for general adult medical examination without abnormal findings Coding Level of Care Code Est Pt Prev Care >65y(44252) Diagnoses HTN (hypertension) I10 Annual physical exam Z00.00 CKD (chronic kidney disease) stage 3, GFR 30-59 ml/min N18.30 Hypothyroidism E03.9 Nicotine dependence, cigarettes, uncomplicated F17.210 Myopathy G72.9 Additional Codes ANIYA-7 Assessment Billing - ANIYA-7 Assessment Tool: ANIYA-7 Assessment [id number] ([id number])
== END 2024-05-06 08:42 | disposition home or self-care (01) ==
PROVIDERS: PCP Internal Medicine; Visit Provider Internal Medicine
DX: Z00.00 Encounter for general adult medical examination without abnormal findings (principal); I12.9 Hypertensive chronic kidney disease with stage 1 through stage 4 chronic kidney disease, or unspecified chronic kidney disease; N18.30 Chronic kidney disease, stage 3 unspecified; E03.9 Hypothyroidism, unspecified; F17.210 Nicotine dependence, cigarettes, uncomplicated; G72.9 Myopathy, unspecified
CPT/HCPCS: 99397

== ENCOUNTER 2024-05-13 10:19 | Outpatient (AMB) | payer MEDICARE, BC, SELFPAY ==
[2024-05-13 10:19] VITALS: BMI 35.3
--- NOTE | 2024-05-13 10:19 | A.OFFVIS_ITS ---
Vital Signs 05/13/24 10:19 Height 5 ft 5 in Weight 212 lb 0.015 oz BMI 35.3 Intake Visit Reasons: Muscle biopsy Left Gluteus muscle Intake Note: This patient presents for a consult to discuss Muscle biopsy Left Gluteus muscle, myopathy. Pt c/o; reports no complaints. 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 About a year ago, she had an episode of severe diffuse muscle pain and stiffness. She went to the ER at that time and was noted to have a very elevated CPK up to 500. She was admitted for a week then She is being followed by the neurologist because of her symptoms. Working diagnosis currently some for myopathy so she is being referred to me for muscle biopsy. She says she continues to have episodes of diffuse muscle pain especially in the lower legs. She says that often times she becomes very weak as well. She says all her muscles become if during these episodes and she is unable to get up or ambulate. She admits to being a smoker. [facility] Medical History Myopathy CKD (chronic kidney disease) stage 3, GFR 30-59 ml/min HTN (hypertension) Hyperlipidemia Hypothyroidism Peptic ulcer disease Nicotine dependence, cigarettes, uncomplicated Lung nodule < 6cm on CT Obesity Snoring History of mammogram Surgical History History of partial gastrectomy History of repair of right rotator cuff History of hysterectomy History of thyroidectomy History of esophagogastroduodenoscopy (EGD) History of colonoscopy Family History Father No problems noted. Mother Multiple sclerosis Social History Household Members: Spouse Housing: House Alcohol intake: current Alcohol intake frequency: does not drink Patient Tobacco Use Status: Current everyday Tobacco user Tobacco use type: Cigarette Cigarette Packs Per Day: 1 Cigarettes Per Day: 20 Years Smoked: (onset 18yo, 1ppd x 44yrs, 40pyh) e-Cigarette/Vaping Use: Never Used service: No Current occupational status: unemployed Cognitive needs: No Hearing needs: No Vision needs: No Review of Systems Const Denies chills and Denies fever(s) Card Denies chest pain, Denies dyspnea and Denies dyspnea on exertion Resp Denies cough, Denies dyspnea and Denies dyspnea on exertion GI Denies hematochezia and Denies change in bowel habits Denies hematuria Musc Denies back pain and Denies limited range of motion Neuro Denies focal weakness and Denies convulsions Psych Denies depression and Denies mood swings Physical Exam Const Other: Appears overweight General: comfortable and no acute distress Orientation/consciousness: patient oriented x3 Neck Neck: Yes no lymphadenopathy Resp Auscultation: clear to auscultation bilaterally Cardio Rhythm: regular rhythm GI Palpation (GI): Soft to palpation, nontender and no guarding Neuro General: patient oriented x3 Assessment & Plan Assessment & Plan (1) Myopathy: Code(s): G72.9 - Myopathy, unspecified Category: Medical Plan: I have been requested by her neurologist to do a muscle biopsy. I explained to her that we can do a muscle biopsy of the left quadriceps. I explained to the patient the technique of this procedure under anesthesia. I reviewed the risks including but not limited to bleeding, infections, postop pain, hematoma, inh erent risks of anesthesia, as well as the benefits and alternatives. I reviewed with her what to expect postoperatively. She says that she has had problems with anesthesia in the past says she is very sensitive to many anesthesia agents. She understands and agrees to proceed. Coding Level of Care Code New Pt Level 3 (60541) Diagnoses Myopathy G72.9
== END 2024-05-13 10:32 | disposition home or self-care (01) ==
PROVIDERS: PCP Internal Medicine; Visit Provider Surgery
DX: G72.9 Myopathy, unspecified (principal)
CPT/HCPCS: 99204

== ENCOUNTER → 2024-05-13 10:19 | Outpatient (BNVA) | payer MEDICARE, BC, SELFPAY | PROVIDERS: PCP Internal Medicine; Visit Provider Surgery | DX: G72.9 Myopathy, unspecified (principal) | CPT/HCPCS: 99202 ==

== ENCOUNTER 2024-06-04 06:53 | Day surgery (SDC) | payer MEDICARE, BC, SELFPAY ==
[2024-05-30 13:29] VITALS: BMI 35.3
--- NOTE | 2024-05-30 14:17 | HO.ANESPROP2 ---
Documented by User: Caridad Galarza NP 05/30/24 14:18 HPI - Anesthesia Eval Consult details Narrative: 63yo F for Left Muscle Biopsy Thigh referred for a muscle biopsy by Neurology. About a year ago, she had an episode of severe diffuse muscle pain and stiffness. She went to the ER at that time and was noted to have a very elevated CPK up to 500. She was admitted for a week then [facility] Active Problems Active Problems: All Active Problems Sinusitis (Acute) Muscle stiffness (Acute) Myositis (Acute) Elevated CK (Acute) Bronchitis (Acute) Myopathy (Acute) CKD (chronic kidney disease) stage 3, GFR 30-59 ml/min (Acute) HTN (hypertension) (Acute) Hyperlipidemia (Acute) Hypothyroidism (Acute) Nicotine dependence, cigarettes, uncomplicated (Acute) Snoring (Acute) Past Medical History Medical History Anesthesia complication Myopathy Snoring Nicotine dependence, cigarettes, uncomplicated CKD (chronic kidney disease) stage 3, GFR 30-59 ml/min Hypothyroidism HTN (hypertension) Lung nodule < 6cm on CT History of mammogram Peptic ulcer disease Obesity Hyperlipidemia Family History Family History Father No problems noted. Mother Multiple sclerosis Surgical History Surgical History History of partial gastrectomy History of repair of right rotator cuff History of hysterectomy History of esophagogastroduodenoscopy (EGD) History of thyroidectomy History of colonoscopy Social History Social History Household Members: Spouse Housing: House Alcohol intake: current Alcohol intake frequency: does not drink Patient Tobacco Use Status: Current everyday Tobacco user Tobacco use type: Cigarette Cigarette Packs Per Day: 1 Cigarettes Per Day: 20.0 Years Smoked: (onset 18yo, 1ppd x 44yrs, 40pyh) e-Cigarette/Vaping Use: Never Used Use of substances other than those prescribed or required for medical reasons: No Are you DNR?: No Advance Directives: No Advance Directives Information Provided: Yes Advance Directives on File: No Recently lost weight without trying: No Nutrition Risks: No Nutritional Risk Patient : No service: No Current occupational status: unemployed Cognitive needs: No Hearing needs: No Vision needs: No Meds Allergies Allergy/AdvReac Type Severity Reaction Status Date / Time Iodinated Contrast Media Allergy Intermediate rash/SOB Verified 05/30/24 13:21 [IV Contrast Dye] pravastatin Allergy Intermediate nausea Verified 05/30/24 13:21 rosuvastatin [From Crestor] Allergy Intermediate hives Verified 05/30/24 13:21 ezetimibe [From Zetia] AdvReac Intermediate Myalgia Verified 05/30/24 13:21 Exam Height,Weight and Vital Signs: Height 5 ft 5 in Weight 96.162 kg Pertinent Lab Results Pertinent Lab Results: Laboratory Tests 01/23/24 02/28/24 08:22 09:51 WBC 6.9 Hgb 15.6 Hct 47.6 H Plt Count 199 Sodium 141 Potassium 4.1 Chloride 110 H Carbon Dioxide 24 BUN 13 Creatinine 1.06 Assessment and Plan Assessment Anesthesia Assessment: Chart Reviewed Documented by User: Anushka Salguero MD 06/04/24 08:30 PMFSH Past Medical History Medical History Anesthesia complication Myopathy Snoring Nicotine dependence, cigarettes, uncomplicated CKD (chronic kidney disease) stage 3, GFR 30-59 ml/min Hypothyroidism HTN (hypertension) Lung nodule < 6cm on CT History of mammogram Peptic ulcer disease Obesity Hyperlipidemia Family History Family History Father No problems noted. Mother Multiple sclerosis Surgical History Surgical History History of partial gastrectomy History of repair of right rotator cuff History of hysterectomy History of esophagogastroduodenoscopy (EGD) History of thyroidectomy History of colonoscopy History of Problems with Anesthesia: No Social History Social History Household Members: Spouse Housing: House Alcohol intake: current Alcohol intake frequency: does not drink Patient Tobacco Use Status: Current everyday Tobacco user Tobacco use type: Cigarette Cigarette Packs Per Day: 1 Cigarettes Per Day: 20.0 Years Smoked: (onset 18yo, 1ppd x 44yrs, 40pyh) e-Cigarette/Vaping Use: Never Used Use of substances other than those prescribed or required for medical reasons: No Are you DNR?: No Advance Directives: No Advance Directives Information Provided: Yes Advance Directives on File: No Recently lost weight without trying: No Nutrition Risks: No Nutritional Risk Patient : No service: No Current occupational status: unemployed Cognitive needs: No Hearing needs: No Vision needs: No Meds Allergies Allergy/AdvReac Type Severity Reaction Status Date / Time Iodinated Contrast Media Allergy Intermediate rash/SOB Verified 05/30/24 13:21 [IV Contrast Dye] pravastatin Allergy Intermediate nausea Verified 05/30/24 13:21 rosuvastatin [From Crestor] Allergy Intermediate hives Verified 05/30/24 13:21 ezetimibe [From Zetia] AdvReac Intermediate Myalgia Verified 05/30/24 13:21 Exam Airway Mallampati Class: II TM Dist: >3cm Neck ROM: Full Loose/Missing/Broken Teeth: No Heart: RRR Lungs: CTA Assessment and Plan Assessment Anesthesia Assessment: Anesthesia Plan Discussed Final Anesthetic Review History of Problems with Anesthesia: No NPO: Yes ASA Class: II Final Preanesthetic Review: Meds/Allgs Chart Reviewed, Consent Obtained/Reviewed and Anes Risks/Benef Reviewed Patient Risk: Low Procedure Risk: Low Anesthetic Plan Anesthetic Plan: MAC: Disposition: Standard PACU
[2024-06-04] VITALS (7 sets, daily range): BP systolic 125–152; BP diastolic 48–82; PULSE 57–71; RESP 16–18; TEMP 36.1–36.6; O2SAT 94–99; BMI 38.4
[2024-06-04] MEDS: Lactated Ringers 1,000 ML 100 ML IVCONT (08:03)
--- NOTE | 2024-06-04 08:35 | MHC.SHP ---
Pre-Procedural Eval Section A - 24 Hr Update-Section A only Date of Service: 06/04/24 The patient is an INPATIENT: No Changes since office visit: Yes Cold of Flu in the past 2 weeks, Yes New Medical Problems, Yes Changes in Medication and Yes Patient answered all questions The patient has been examined within 24 hours of the surgical procedure. The History & Physical has been completed within 30 days and I have reviewed it.: Yes Section B - Complete if H&P > 30 days Chief Complaint: Myopathy, unspecified Allergies: Allergies Allergy/AdvReac Type Severity Reaction Status Date / Time Iodinated Contrast Media Allergy Intermediate rash/SOB Verified 05/30/24 13:21 [IV Contrast Dye] pravastatin Allergy Intermediate nausea Verified 05/30/24 13:21 rosuvastatin [From Crestor] Allergy Intermediate hives Verified 05/30/24 13:21 ezetimibe [From Zetia] AdvReac Intermediate Myalgia Verified 05/30/24 13:21 Plan I have reviewed the history and physical and performed a pertinent physical examination on my patient. No changes have occurred unless specified. Time Spent With Patient Time: Total time managing care of this patient today ____ minutes.
--- NOTE | 2024-06-04 09:19 | P.OP_ITS ---
Operative Note Operative Note Date of Service: 06/04/24 Narrative: Preop diagnosis: Myopathy Postop diagnosis: The same Procedure: Left thigh muscle biopsy, quadriceps muscle Surgeon: Cornelio Light MD state tested nursing assistant: RANDY Jones The patient is a 63-year-old female being followed by the neurologist because of elevated CK along with muscle weakness consistent with myopathy. She was referred to me for my so biopsy for a more definitive diagnosis. She understood the technique of the planned procedure as well as the risks, benefits, and alternatives She was brought to the operating room. She was placed supine under monitored anesthesia care. The left thigh anteriorly was prepped and draped in the usual sterile fashion. A surgical time-out was done. The patient received cefazolin 2 g IV preoperatively I infiltrated the planned line of incision on the distal thigh with lidocaine 1%. I made a transverse incision on the skin using blade 15. This carried down with electrocautery through the full-thickness of the skin and subcutaneous fat down to fascia of the quadriceps. I incised the fascia to expose the fibers of the quadriceps muscles. I did blunt dissection with a Fiorella clamp the isolate a thick band of the quadriceps muscle fibers. I applied a clamp proximal and distal. I divided this band of muscle, about 1 cm in length. I positioned this on a muscle clamp to put this on stretch I tied the divided edges of muscle with Polysorb 3-0 ties. I irrigated. I closed the fascia with a [id number] Polysorb 3-0 stitch. The subcutaneous layer was reapposed with Polysorb 3-0 simple interrupted sutures. Skin closure was achieved with Polysorb 4-0 subcuticular running stitch. The area was infiltrated with Marcaine 0.5% for postop analgesia Dressings were applied. The procedure was completed. She tolerated procedure well. There were no immediate complications. She was transferred to the recovery room with stable vital signs.
[2024-06-04] MEDS: ondansetron HCL 4 MG/2 ML VIAL IVPUSH (10:35)
[2024-06-04] MEDS: Haloperidol Lactate 5 MG/ML VIAL 1 MG IVPUSH (10:49)
== END 2024-06-04 11:29 | disposition home or self-care (01) ==
PROVIDERS: PCP Internal Medicine; Visit Provider Surgery
PROC: (CPT 20200; principal; 2024-06-04 09:00)
DX: G72.9 Myopathy, unspecified (principal); R74.8 Abnormal levels of other serum enzymes; I12.9 Hypertensive chronic kidney disease with stage 1 through stage 4 chronic kidney disease, or unspecified chronic kidney disease; N18.30 Chronic kidney disease, stage 3 unspecified; E78.5 Hyperlipidemia, unspecified; K27.9 Peptic ulcer, site unspecified, unspecified as acute or chronic, without hemorrhage or perforation; Z90.3 Acquired absence of stomach [part of]; R91.1 Solitary pulmonary nodule; E66.9 Obesity, unspecified; Z68.35 Body mass index [BMI] 35.0-35.9, adult; Z88.8 Allergy status to other drugs, medicaments and biological substances; Z91.041 Radiographic dye allergy status; Z98.890 Other specified postprocedural states; F17.210 Nicotine dependence, cigarettes, uncomplicated; Z56.0 Unemployment, unspecified
CPT/HCPCS: 20200; 88300; 88305; 88313; 88319; 88348; J0690; J1630; J2250; J2405; J2795; J3010

== ENCOUNTER → 2024-06-04 06:53 | Outpatient (BNV) | payer MEDICARE, BC, SELFPAY | PROVIDERS: PCP Internal Medicine; Visit Provider Surgery | DX: G72.9 Myopathy, unspecified (principal) | CPT/HCPCS: 20205 ==

== ENCOUNTER 2024-06-17 10:40 | Outpatient (AMB) | payer MEDICARE, BC, SELFPAY ==
--- NOTE | 2024-06-17 10:46 | A.OFFVIS_ITS ---
Vital Signs 06/17/24 10:50 BP 140/77 H Blood Pressure Location Rt brachial Position Sitting Pulse 84 Intake Visit Reasons: S/P muscle bx Lt. thigh Intake Note: Patient is seen in office for post op assessment post muscle biopsy of the left thigh. Patient c/o: reports no complaints. 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 thigh: Details: She had undergone biopsy of the left quadriceps muscle for a working impression of myopathy last June 04, 2024. She denies any significant complaints at this time and says that she is doing well. [facility] Medical History Anesthesia complication Myopathy Snoring Nicotine dependence, cigarettes, uncomplicated CKD (chronic kidney disease) stage 3, GFR 30-59 ml/min Hypothyroidism HTN (hypertension) Lung nodule < 6cm on CT History of mammogram Peptic ulcer disease Obesity Hyperlipidemia Surgical History History of partial gastrectomy History of repair of right rotator cuff History of hysterectomy History of esophagogastroduodenoscopy (EGD) History of thyroidectomy History of colonoscopy Family History Father No problems noted. Mother Multiple sclerosis Social History Household Members: Spouse Housing: House Alcohol intake: current Alcohol intake frequency: does not drink Patient Tobacco Use Status: Current everyday Tobacco user Tobacco use type: Cigarette Cigarette Packs Per Day: 1 Cigarettes Per Day: 20.0 Years Smoked: (onset 18yo, 1ppd x 44yrs, 40pyh) e-Cigarette/Vaping Use: Never Used service: No Current occupational status: unemployed Cognitive needs: No Hearing needs: No Vision needs: No Review of Systems Const Denies chills and Denies fever(s) Physical Exam Vital Signs: Last Vital Signs Pulse 84 06/17/24 10:50 BP 140/77 H 06/17/24 10:50 Const General: comfortable and no acute distress Resp Effort & Inspection: normal respiratory effort Extrem Other: Incision on the left thigh area is well healed, no evidence of any infection Assessment & Plan Assessment & Plan (1) Myositis: Comment: hospitalized in [place], Jul 0512/2022 Rhabdomyolysis ? Code(s): M60.9 - Myositis, unspecified Category: Medical Plan: Status post muscle biopsy, left anterior thigh. She is doing very well. The incision is well healed. I explained to her that the path report is not back yet as this is sent to [facility]. I will make sure that this report will be forwarded to her primary care physician as well as her neurologist. Coding Level of Care Code Global (95774) Diagnoses Myositis M60.9
[2024-06-17 10:50] VITALS: BP 140/77; PULSE 84
== END 2024-06-17 10:57 | disposition home or self-care (01) ==
PROVIDERS: PCP Internal Medicine; Visit Provider Surgery
DX: M60.9 Myositis, unspecified (principal)
CPT/HCPCS: 99212

== ENCOUNTER → 2024-06-17 10:40 | Outpatient (BNVA) | payer MEDICARE, BC, SELFPAY | PROVIDERS: PCP Internal Medicine; Visit Provider Surgery | DX: Z48.817 Encounter for surgical aftercare following surgery on the skin and subcutaneous tissue (principal); M60.9 Myositis, unspecified; Z98.890 Other specified postprocedural states | CPT/HCPCS: 99212 ==

== ENCOUNTER 2024-09-16 13:29 | Outpatient (REF) | payer MEDICARE, BC, SELFPAY ==
[2024-09-16 16:30] LABS: Appearance Urine Clear; Color Urine Yellow; Glucose Urine UA Negative (Negative); Leukocyte Esterase Urine Negative (Negative); Nitrite Urine Negative (Negative); PH 5.5 (5.0-9.0); Specific Gravity - Urine 1.015 (1.005-1.025); Urine Blood Negative (Negative); Urine Ketones Negative (Negative); Urine Protein Negative (Neg-Trace)
[2024-09-16 16:30] LABS: MANUAL DIFF FLAG NO
[2024-09-16 16:35] LABS: Basophils Percent Auto 0.5 % (0-2); Eosinophils Absolute Auto 0.1 X10*3/uL (0.0-0.4); Eosinophils Percent Auto 1.5 % (0-4); Hematocrit 43.6 % (37.0-47.0); Hemoglobin 14.4 g/dl (12.0-16.0); Imm Gran Abs Auto 0.02 X10*3/uL (0.00-0.03); Imm Gran Pct Auto 0.3 % (0.0-0.4); Lymphocytes Absolute Auto 3.1 X10*3/uL (1.2-4.9); Mean Corpuscular Hemoglobin 29.8 pg (27.0-33.0); Mean Corpuscular Volume 90.1 fL (80.0-98.0); Mean Platelet Volume 10.5 fL (9.4-12.3); Monocytes Absolute Auto 0.7 X10*3/uL (0.1-1.2); Monocytes Percent Auto 11.4 % (2-11); Neutrophils Absolute Auto 2.1 x10*3/uL (2.0-8.3); Neutrophils Percent Auto 35.3 % (45-73); Platelet Count 235 X10*3/uL (160-400); Red Blood Count 4.84 X10*6/uL (4.20-5.50); Red Cell Distribution Width 14.7 % (11.0-16.0)
[2024-09-16 17:09] LABS: Alanine Aminotransferase 27 U/L (0-31); Albumin Level 4.1 g/dL (3.5-5.0); Alkaline Phosphatase 81 U/L (39-117); Anion Gap 14 (12-20); Aspartate Amino Transferase 26 U/L (5-31); Bilirubin Total 0.4 mg/dL (0.0-1.0); Blood Urea Nitrogen 12 mg/dL (9-16); Calcium 8.8 mg/dL (8.4-10.2); Carbon Dioxide 21 mmol/L (22-29); Chloride 108 mmol/L (96-108); Estimated Glomerular Filt Rate > 60; Glucose Random 79 mg/dL (60-115); Potassium 4.2 mmol/L (3.3-5.1); Sodium 139 mmol/L (135-145); Total Protein 7.4 g/dL (6.5-8.0)
== END 2024-09-16 13:30 | disposition home or self-care (01) ==
LOC: HO.HMGCLDS 13:29
PROVIDERS: PCP Internal Medicine; Visit Provider Internal Medicine Hypertension Specialist
DX: M62.89 Other specified disorders of muscle (principal); M60.9 Myositis, unspecified
CPT/HCPCS: 36415; 80053; 81003; 85025

== ENCOUNTER 2024-09-18 08:31 | Outpatient (AMB) | payer MEDICARE, BC, SELFPAY ==
[2024-09-18 08:38] VITALS: BP 144/88; PULSE 78; O2SAT 94; BMI 38.6
--- NOTE | 2024-09-18 08:38 | HO.NEPHOV ---
Vital Signs 09/18/24 08:38 09/18/24 08:48 Height 5 ft 3 in Weight 218 lb BMI 38.6 BP 144/88 H 130/70 Blood Pressure Location Lt brachial Rt brachial Position Sitting Sitting Pulse 78 Pulse Source Pulse Oximeter Pulse Oximetry (%) 94 Oxygen Delivery Method Room Air Intake Visit Reasons: 6 mon follow up/ Conf Glass Tinter Required: No Accompanied by: Spouse Allergies Iodinated Contrast Media [IV Contrast Dye] Allergy (Intermediate, Verified 09/18/24 08:41) rash/SOB pravastatin Allergy (Intermediate, Verified 09/18/24 08:41) nausea rosuvastatin [From Crestor] Allergy (Intermediate, Verified 09/18/24 08:41) hives ezetimibe [From Zetia] Adverse Reaction (Intermediate, Verified 09/18/24 08:41) Myalgia Medication List - Last Reconciled 09/18/24 by Sohan Salguero MD albuterol sulfate 90 mcg/actuation 2 puffs inhalation Q6H PRN levothyroxine 125 mcg PO DAILY losartan 25 mg PO DAILY tramadol 50 mg PO Q6H PRN HPI Comments Details: Pawan is a pleasant 63-year-old woman with a history of hypertension and was found to have mild elevation in serum creatinine with EGFR for blood 50 mL/minutes. In May of 2023 she had an unprovoked episode of muscle stiffness. She felt like she was being tased. She was admitted to the ICU in [place] and was treated for rhabdomyolysis. CPK was as high as 6100. This gradually improved. Recently this CPK staying in the range of 250-400. She has undergone extensive workup for the same. She was seen by Rheumatology and basic serological workup was done. Myositis was ruled out. She is being evaluated by Neurology and scheduled for an EMG. She is not on any statins. She has history of intolerance to statins. She was tried on pravastatin, rosuvastatin and Zetia in the past. She has a history of hypertension. She is on Benicar 5 mg once a day. She tells me that the symptoms started after initiation of Benicar. In the past she was on amlodipine 2.5 mg which has been discontinued due to some side effect which she is not able to recall. She has no history of any dark urine. No urinary symptoms. No dysuria. No urgency. No back pain. No nausea vomiting. No change in weight. She has history of smoking up to 1 pack per day. 03/27/24 She has been experiencing muscle cramps on and off especially after drinking lemonade. She underwent EMG. Results were reviewed. [facility] Medical History Anesthesia complication Myopathy Snoring Nicotine dependence, cigarettes, uncomplicated CKD (chronic kidney disease) stage 3, GFR 30-59 ml/min Hypothyroidism HTN (hypertension) Lung nodule < 6cm on CT History of mammogram Peptic ulcer disease Obesity Hyperlipidemia Surgical History History of partial gastrectomy History of repair of right rotator cuff History of hysterectomy History of esophagogastroduodenoscopy (EGD) History of thyroidectomy History of colonoscopy Family History Father No problems noted. Mother Multiple sclerosis Social History Household Members: Spouse Housing: House Alcohol intake: current Alcohol intake frequency: does not drink Patient Tobacco Use Status: Current everyday Tobacco user Tobacco use type: Cigarette Cigarette Packs Per Day: 1 Cigarettes Per Day: 20.0 Years Smoked: (onset 18yo, 1ppd x 44yrs, 40pyh) e-Cigarette/Vaping Use: Never Used service: No Current occupational status: unemployed Cognitive needs: No Hearing needs: No Vision needs: No Physical Exam Vital Signs: Last Vital Signs Pulse 78 09/18/24 08:38 BP 144/88 H 09/18/24 08:38 Pulse Ox 94 09/18/24 08:38 Oxygen Delivery Method Room Air 09/18/24 08:38 BMI result Body Mass Index 38.6 Results Reviewed Nephrology Results: Hgb 14.4 g/dl (12.0-16.0) 09/16/24 WBC 6.0 X10*3/uL (4.8-10.8) 09/16/24 Plt Count 235 X10*3/uL (160-400) 09/16/24 Sodium 139 mmol/L (135-145) 09/16/24 Potassium 4.2 mmol/L (3.3-5.1) 09/16/24 Chloride 108 mmol/L (96-108) 09/16/24 Carbon Dioxide 21 mmol/L (22-29) L 09/16/24 BUN 12 mg/dL (9-16) 09/16/24 Creatinine 0.89 mg/dL (0.5-1.4) 09/16/24 Calcium 8.8 mg/dL (8.4-10.2) 09/16/24 Urine Protein Negative mg/dL (Neg-Trace) 09/16/24 Assessment & Plan Assessment & Plan (1) HTN (hypertension): Code(s): I10 - Essential (primary) hypertension Category: Medical (2) CKD (chronic kidney disease) stage 3, GFR 30-59 ml/min: Code(s): N18.30 - Chronic kidney disease, stage 3 unspecified Category: Medical (3) Elevated CK: Code(s): R74.8 - Abnormal levels of other serum enzymes Category: Medical (4) Myositis: Comment: hospitalized in [place], Jul 0512/2022 Rhabdomyolysis ? Code(s): M60.9 - Myositis, unspecified Category: Medical (5) Muscle stiffness: Code(s): M62.89 - Other specified disorders of muscle Category: Medical Plan . 63-year-old woman with a history of hypertension, elevated BMI and dyslipidemia has mild CKD with EGFR around 50-60 mL/minute. Over the last 3 years serum creatinine has been stable around 1.15 mg/dL. Renal function is at baseline. The EGFR reported might be an overestimation. I believe her renal function is slightly better than the reported EGFR. Recent imaging study did not reveal any obstruction. Urinalysis done in the past did not reveal any significant proteinuria or hematuria. Glomerulonephritis or interstitial disease seem unlikely at this point. Hypertension. Goal is to maintain blood pressure less than 130/80. Keep losartan 25 mg daily. Encouraged to stay on a low-sodium diet. She will benefit from weight loss. Mild Rhabdomyolysis. Etiology remains unclear. Status post EMG. muscle biopsy - normal Medications: Discontinued tramadol Discontinued Reason: Patient no longer taking 50 mg PO Q6H PRN 15 tabs 0RF pain Coding Level of Care Code Est Pt Level 4 (59408) Diagnoses HTN (hypertension) I10 CKD (chronic kidney disease) stage 3, GFR 30-59 ml/min N18.30 Elevated CK R74.8 Myositis M60.9 Muscle stiffness M62.89
[2024-09-18 08:48] VITALS: BP 130/70
== END 2024-09-18 16:00 ==
PROVIDERS: PCP Internal Medicine; Visit Provider Internal Medicine Hypertension Specialist
DX: I10 Essential (primary) hypertension (principal); N18.30 Chronic kidney disease, stage 3 unspecified; R74.8 Abnormal levels of other serum enzymes; M60.9 Myositis, unspecified; M62.89 Other specified disorders of muscle
CPT/HCPCS: 99214

== ENCOUNTER → 2024-09-18 08:31 | Outpatient (BNVA) | payer MEDICARE, BC, SELFPAY | PROVIDERS: PCP Internal Medicine; Visit Provider Internal Medicine Hypertension Specialist | DX: I12.9 Hypertensive chronic kidney disease with stage 1 through stage 4 chronic kidney disease, or unspecified chronic kidney disease (principal); N18.30 Chronic kidney disease, stage 3 unspecified; M62.89 Other specified disorders of muscle; R74.8 Abnormal levels of other serum enzymes; M60.9 Myositis, unspecified | CPT/HCPCS: 99212 ==

== ENCOUNTER 2024-10-09 08:23 | Outpatient (AMB) | payer MEDICARE, BC, SELFPAY ==
--- NOTE | 2024-10-09 08:29 | A.OFFVIS_ITS ---
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 she had EMG which was c/w possible myopathy of unknown origin .Muscle biopsy was normal. Clinically she still has mild episodes of spasms in her legs both at rest and movement. she has 1-2 epsiodes a month. she was seen by Rheumatology and labs were not c/w myositis Prior history-. About 1 year ago she was at a family picnic around 11am , she was walking and suddenly felt stiff in her legs and her whole body and fell. she was in pain and the muscle were tight as per . Her started massaging her legs and the muscles felt hard. she was taken to local ER- she was given morphine and labetelol. Her muscle enzymes were high ? 5000 and she was admitted for 1 week in the hospital. she says she had extensive evaluation but does not know the details. she was told she was dehydrated and had kidney injury. she was started on a new antihypertensive 2 days prior to this episode and is wondering if that triggered. she is still on olmesartan . she still has very minor episodes 2-3 since then, she denies any cramping during sleep, denies neck or back pain. she has snoring and daytime fatigue. she also recalls having a reaction to statin 2 years ago -body aches and breathing issues. she denies any preceding illness, or strenuous activities, heat exhaustion etc. [facility] Medical History (Updated 01/08/25 @ 08:57 by Laurel Salguero MD) Muscle spasm Anesthesia complication Myopathy Snoring Nicotine dependence, cigarettes, uncomplicated CKD (chronic kidney disease) stage 3, GFR 30-59 ml/min Hypothyroidism HTN (hypertension) Lung nodule < 6cm on CT History of mammogram Peptic ulcer disease Obesity Hyperlipidemia Surgical History History of partial gastrectomy History of repair of right rotator cuff History of hysterectomy History of esophagogastroduodenoscopy (EGD) History of thyroidectomy History of colonoscopy Family History Father No problems noted. Mother Multiple sclerosis Social History Household Members: Spouse Housing: House Alcohol intake: current Alcohol intake frequency: does not drink Patient Tobacco Use Status: Current everyday Tobacco user Tobacco use type: Cigarette Cigarette Packs Per Day: 1 Cigarettes Per Day: 20.0 Years Smoked: (onset 18yo, 1ppd x 44yrs, 40pyh) e-Cigarette/Vaping Use: Never Used service: No Current occupational status: unemployed Cognitive needs: No Hearing needs: No Vision needs: No Physical Exam Vital Signs: Last Vital Signs Pulse 73 10/09/24 08:30 BP 122/80 10/09/24 08:30 Pulse Ox 98 10/09/24 08:30 Oxygen Delivery Method Room Air 10/09/24 08:30 BMI result Body Mass Index 39.4 Const General: cooperative, healthy appearing, comfortable and no acute distress Nutritional Appearance: obese Orientation/consciousness: patient oriented x3 Eyes Pupils: Equal, round and reactive pupils present Neuro Other: * Mallampatti grade 4 General: patient oriented x3, gait normal, tone normal, moves all extremities and no focal motor deficits Cranial nerves: Yes Facial sensation intact/muscles of mastication intact, Yes Equal, round and reactive pupils present, Yes Bilaterally intact EOM present, Yes Nystagmus not present, Yes Normal facial strength present, Yes Midline tongue present and Yes Symmetric palate elevation present Cognition (Neuro): normal cognition Gait exam (Neuro): Normal gait present Motor exam (neuro): 5/5 motor strength present throughout and Normal motor muscle tone present throughout Deep tendon reflexes (DTR's): Right triceps reflex intensity grade: 1+, Left triceps reflex intensity grade: 1+, Rt Biceps (C5, C6): 1+, Left biceps reflex intensity grade: 1+, Right brachioradialis reflex intensity grade: 0, Left brachioradialis reflex intensity grade: 0, Right patellar reflex intensity grade: 1+, Left patellar reflex intensity grade: 1+, Right ankle reflex intensity grade: 0 and Left ankle reflex intensity grade: 0 Coordination: [id number] test normal Assessment & Plan Assessment & Plan (1) Elevated CK: Code(s): R74.8 - Abnormal levels of other serum enzymes Category: Medical (2) Muscle spasm: Comment: Paroxysmal dystonia ? Code(s): M62.838 - Other muscle spasm Category: Medical Plan Reviewed renal notes , EMG results I will repeat EMG to assess progress Muscle biopsy - normal , no evidence of myopathy Continue good hydration and if her episodes increase will consider starting on medications like phenytoin or tegretol. Consider sleep study Orders: Orders NE electromyogram (EMG) Today - Other muscle spasm, R74.8 - Abnormal levels of other serum enzymes NE nerve conduction velocity Today 83 - Other muscle spasm, R74.8 - Abnormal levels of other serum enzymes Coding Level of Care Code Est Pt Level 4 (64930) Diagnoses Elevated CK R74.8 Muscle spasm
[2024-10-09 08:30] VITALS: BP 122/80; PULSE 73; O2SAT 98; BMI 39.4
== END 2024-10-09 09:35 | disposition home or self-care (01) ==
PROVIDERS: PCP Internal Medicine; Visit Provider Psychiatry & Neurology Neurology
DX: R74.8 Abnormal levels of other serum enzymes (principal); M62.838 Other muscle spasm
CPT/HCPCS: 99214

== ENCOUNTER → 2024-10-09 08:23 | Outpatient (BNVA) | payer MEDICARE, BC, SELFPAY | PROVIDERS: PCP Internal Medicine; Visit Provider Psychiatry & Neurology Neurology | DX: M62.838 Other muscle spasm (principal); R74.8 Abnormal levels of other serum enzymes | CPT/HCPCS: 99212 ==

== ENCOUNTER 2024-11-11 10:39 | Outpatient (AMB) | payer MEDICARE, BC, SELFPAY ==
[2024-11-11 10:42] VITALS: BP 116/70; PULSE 87; RESP 20; TEMP 36.9; O2SAT 97; BMI 37.0
--- NOTE | 2024-11-11 10:42 | MHC.PC.OV ---
Vital Signs 11/11/24 10:42 Height 5 ft 3 in Weight 209 lb BMI 37.0 BP 116/70 Blood Pressure Location Rt brachial Position Sitting Respiration 20 Pulse 87 Pulse Source Pulse Oximeter Temp 98.5 F Temp Source Oral Pulse Oximetry (%) 97 Oxygen Delivery Method Room Air Intake Visit Reasons: 6 month f/u Intake Note: Pt is here today for 6 months follow up visit. Allergies Iodinated Contrast Media [IV Contrast Dye] Allergy (Intermediate, Verified 11/11/24 10:46) rash/SOB pravastatin Allergy (Intermediate, Verified 11/11/24 10:46) nausea rosuvastatin [From Crestor] Allergy (Intermediate, Verified 11/11/24 10:46) hives ezetimibe [From Zetia] Adverse Reaction (Intermediate, Verified 11/11/24 10:46) Myalgia Medication List - Last Reconciled 11/11/24 by Akua Paige MD albuterol sulfate 90 mcg/actuation 2 puffs inhalation Q6H PRN levothyroxine 125 mcg PO DAILY losartan 25 mg PO DAILY Tobacco use date assessed: 11/11/24 Fall risk assessment: No Falls in past year Last assessed Fall Risk: 11/11/24 Dental Screening Dental Screen Date: 11/11/24 Did you have a dental visit in the last 12 months?: Yes Did you have a dental problem in the last 6 months where you did not have access to dental care?: No Was dental information given to patient?: Patient has dentist HPI 6 month f/u HPI Details Patient presents for the follow-up for hypertension hypothyroidism. She has been exercising twice a week swimming and doing water aerobics. Patient reports no muscle weakness and occasional muscle twitching improved significantly since patient has been physically active. She follows up with Neurology and is scheduled to have a repeat EMG. She had negative muscle biopsy and nonocclusive EMG before. [facility] Medical History Muscle spasm Anesthesia complication Myopathy Snoring Nicotine dependence, cigarettes, uncomplicated CKD (chronic kidney disease) stage 3, GFR 30-59 ml/min Hypothyroidism HTN (hypertension) Lung nodule < 6cm on CT History of mammogram Peptic ulcer disease Obesity Hyperlipidemia Surgical History History of partial gastrectomy History of repair of right rotator cuff History of hysterectomy History of esophagogastroduodenoscopy (EGD) History of thyroidectomy History of colonoscopy Family History Father No problems noted. Mother Multiple sclerosis Social History Household Members: Spouse Housing: House Alcohol intake: current Alcohol intake frequency: does not drink Patient Tobacco Use Status: Current everyday Tobacco user Tobacco use type: Cigarette Cigarette Packs Per Day: 1 Cigarettes Per Day: 20.0 Years Smoked: (onset 18yo, 1ppd x 44yrs, 40pyh) Packs Per Year: 0 Packs per year/per ci.00 e-Cigarette/Vaping Use: Never Used service: No Current occupational status: unemployed Cognitive needs: No Hearing needs: No Vision needs: No Questionnaire PHQ-9 Over the last 2 weeks, how often have you been bothered by any of the following problems? 1. Little interest or pleasure in doing things: not at all 2. Feeling down, depressed, or hopeless: not at all 3. Trouble falling or staying asleep, or sleeping too much: not at all 4. Feeling tired or having little energy: not at all 5. Poor appetite or overeating: not at all 6. Feeling bad about yourself - or that you are a failure or have let yourself or your family down: not at all 7. Trouble concentrating on things, such as reading the newspaper or watching television: not at all 8. Moving or speaking so slowly that other people could have noticed. Or the opposite - being so fidgety or restless that you have been moving around a lot more than usual: not at all 9. Thoughts that you would be better off or of hurting yourself in some way: not at all Total score: 0 Depression Screening Interpretation: Negative Depression Screening Done: Yes 52136 - PHQ-9 Billing: Yes Source: Developed by Drs. Richard Prieto, Gavi Platt, Missael Chavez and colleagues, with an educational stevan from [employer]. Thrive Questionnaire Date Thrive assessed: 11/11/24 I am a: Patient What is your living situation today?: I have a steady place to live Within the past 12 months, did the food you bought not last and you didn't have the money to get more?: Never true Within the past 12 months, did you worry whether your food would run out before you got money to buy more?: Never true Do you have trouble paying for medicines?: No Do you have trouble getting transportation to medical appointments?: No Do you have trouble paying your heating and electricity bill?: No Do you have trouble taking care of your child, family member or friend?: No Do you have trouble with day-to-day activities such as bathing, preparing meals, shopping, managing finances, etc.?: No Are you currently unemployed and looking for a job?: No Are you interested in more education?: I choose not to answer this question Please select the resources that you would like help with: None Currently or been in a relationship where the following occur: No concerns reported THRIVE Score: 0 AUDIT C Alcohol Use Questionnaire (AUDIT-C) 1. How often do you have a drink containing alcohol?: Never 3. How often do you have six or more drinks on one occasion?: Never Total Score: 0 ANIYA-7 AMB Questionnaire ANIYA-7 Date ANIYA - 7 assessed: 11/11/24 Feeling nervous, anxious, or on edge: 0 = Not at all Not being able to stop or control worryin = Not at all Worrying too much about different things: 0 = Not at all Trouble relaxin = Not at all Being so restless that it is hard to sit still: 0 = Not at all Becoming easily annoyed or irritable: 0 = Not at all Feeling afraid as if something awful might happen: 0 = Not at all Total ANIYA-7 score (0-4 normal; 5-9 mild; 10-14 moderate; 15-21 severe): 0 Source: Developed by Drs. Richard Prieto, Gavi Platt, Missael Chavez and colleagues, with an educational stevan from [employer]. ANIYA-7 Assessment Billing ANIYA-7 Assessment Tool: ANIYA-7 Assessment 84890 Review of Systems Const All systems reviewed & are unremarkable except as noted in HPI and below ENT Reports no additional complaints Card Reports no additional complaints Resp Reports no additional complaints GI Reports no additional complaints Reports no additional complaints Musc Reports no additional complaints Physical exam (Primary Care) Vital Signs: Last Vital Signs Temp 98.5 F 11/11/24 10:42 Pulse 87 11/11/24 10:42 Resp 20 11/11/24 10:42 BP 116/70 11/11/24 10:42 Pulse Ox 97 11/11/24 10:42 Oxygen Delivery Method Room Air 11/11/24 10:42 BMI result Body Mass Index 37.0 Tobacco/Smoking Status: Tobacco use Status Tobacco use date assessed 11/11/24 11/11/24 10:48 Patient Tobacco Use Status Current everyday Tobacco 11/11/24 10:44 Tobacco use type Cigarette 11/11/24 10:44 e-Cigarette/Vaping Use Never Used 11/11/24 10:44 PHQ-9: PHQ-9 Score PHQ-9: Total score 0 11/11/24 10:48 Depression Screening Interpretation: Negative Thrive Assessment: Date of Thrive Assessment Date Thrive assessed 11/11/24 11/11/24 10:48 Currently or been in a relationship where the following occur: No concerns reported Const General: no acute distress HENMT Head: Yes normal to inspection Mouth: Normal oral and palatal mucosa present Eyes General: appearance normal, both eyes and all related structures Resp Effort & Inspection: normal respiratory effort Auscultation: clear to auscultation bilaterally Cardio Rhythm: regular rhythm Heart sounds: S1 normal heart sound present and S2 normal heart sound present GI Inspection: Yes normal to inspection Palpation (GI): Soft to palpation Percussion: Yes normal to percussion Auscultation: normal bowel sounds Coding Level of Care Code Est Pt Level 4 (07440) Diagnoses Hypothyroidism E03.9 Hyperlipidemia E78.5 HTN (hypertension) I10 Nicotine dependence, cigarettes, uncomplicated F17.210 Elevated CK R74.8 Additional Codes ANIYA-7 Assessment Billing - ANIYA-7 Assessment Tool: ANIYA-7 Assessment 31784 ([id number]) PHQ-9 - 63661 - PHQ-9 Billing: Yes ([id number]) Assessment & Plan Assessment & Plan (1) Hypothyroidism: Comment: (acquired - s/p thyroidectomy) Code(s): E03.9 - Hypothyroidism, unspecified Category: Medical Plan: CONTINUE LEVOTHYROXINE CHECK TSH (2) Hyperlipidemia: Comment: (Intolerant to statins) Code(s): E78.5 - Hyperlipidemia, unspecified Category: Medical Plan: Patient will return for fasting blood work to check lipid profile (3) HTN (hypertension): Code(s): I10 - Essential (primary) hypertension Category: Medical Plan: Continue losartan (4) Nicotine dependence, cigarettes, uncomplicated: Comment: (current smoker - onset 18yo, 1ppd x 44yrs, 40pyh) Code(s): F17.210 - Nicotine dependence, cigarettes, uncomplicated Category: Medical Plan: Tobacco quitting discussed with the patient, patient is established with lung cancer screening program (5) Elevated CK: Comment: Negative muscle biopsy and inconclusive EMG Code(s): R74.8 - Abnormal levels of other serum enzymes Category: Medical Plan: Repeat CPK Orders: Orders Lipid Panel Today E03.9 - Hypothyroidism, unspecified, E78.5 - Hyperlipidemia, unspecified Creatine Kinase Total Today E03.9 - Hypothyroidism, unspecified, E78.5 - Hyperlipidemia, unspecified Complete Blood Count Auto Diff Today E03.9 - Hypothyroidism, unspecified, E78.5 - Hyperlipidemia, unspecified TSH reflex Free T4 Today E03.9 - Hypothyroidism, unspecified, E78.5 - Hyperlipidemia, unspecified Medications: Refilled losartan 25 mg PO DAILY 90 tabs 3RF levothyroxine 125 mcg PO DAILY 90 tabs 3RF
== END 2024-11-11 11:52 | disposition home or self-care (01) ==
PROVIDERS: PCP Internal Medicine; Visit Provider Internal Medicine
DX: E03.9 Hypothyroidism, unspecified (principal); E78.5 Hyperlipidemia, unspecified; I10 Essential (primary) hypertension; F17.210 Nicotine dependence, cigarettes, uncomplicated; R74.8 Abnormal levels of other serum enzymes

== ENCOUNTER → 2024-11-11 10:39 | Outpatient (BNVA) | payer MEDICARE, BC, SELFPAY | PROVIDERS: PCP Internal Medicine; Visit Provider Internal Medicine | DX: E03.9 Hypothyroidism, unspecified (principal); E78.5 Hyperlipidemia, unspecified; I10 Essential (primary) hypertension; R74.8 Abnormal levels of other serum enzymes; F17.210 Nicotine dependence, cigarettes, uncomplicated; Z71.6 Tobacco abuse counseling | CPT/HCPCS: 96127; 99212 ==

== ENCOUNTER 2024-12-03 12:54 | Outpatient (REF) | payer MEDICARE, BC, SELFPAY ==
--- OUTSIDE RECORDS SUMMARY | 2024-12-03 15:56 | XMS_ITS | Data Portability ---
Author Organization [facility] [address] Address [address] [place] [address] Care Team Providers Care Health Care Facility Administrator Name Role Phone ABIOLA AARONANNA Primary Care Provider Assessment No assessment recorded. Plan of Treatment Reminders Order Date Submit Date Provider Last Modified By Organization Details Last Modified Time Details Appointments None recorded. Lab None recorded. Referral emergency medicine referral - Chest pain radiation to back, dizziness x 1 hour. EKG normal. need further evaluation and treatment. 2022 023 [email or web address] [facility] Emergency Room, [address] [place], [address], 3 11:24:31 Procedures None recorded. Surgeries None recorded. Imaging electrocard iogram 2022 023 [email or web address] [facility] [address], [address] [place], [address], 3 11:24:32 Medication Orders None recorded. Patient TargetsNo targets recorded. Patient Instructions Encounter Date Encounter Id Patient Instructions Last Modified By Organization Details Last Modified Time 05/20/2023 [id number] chest pain: care instructions [email or web address] Not available 05/20/2023 11:24:40 If you have any kind of chest discomfort, even if it is difficult to describe (sometimes it can feel like bloating or nausea), and especially if the pain radiates down either arm, to the back, or up your neck or if it is associated with sweating, trouble breathing, dizziness, or nausea/vomiting, please go directly to the Emergency Room (ER) to be checked out. The ER is the only place that can completely rule out a heart attack or blood clot in your lungs. A normal-appearing EKG DOES NOT rule out a heart attack. [email or web address] Not available 05/20/2023 11:13:23 Reason for Referral Emergency Medicine Referral for Chest pain Chest pain radiation to back, dizziness x 1 hour. EKG normal. need further evaluation and treatment. Chest pain radiation to back, dizziness x 1 hour. EKG normal. need further evaluation and treatment. Referring Physician: Isaac Hall, Urgent Care, Encounter Date: 05/20/2023 Results Created Date Observation Date Name Description Value Unit Range Abnormal Flag Note LastModifiedBy Organization Detail LastModifiedTime 05/20/2005/20/2023 elect rocar diogr am No observ ation record ed. [facility] [address] [place], [address], 05/20/2023 11:24:32 05/20/20 elect rocar diogr am No observ ation record ed. [facility] [address] [place], [address], 05/20/2023 19:17:20 Result Notes None recorded. Problems Name Problem SNOMED Code Status Onset Date Resolution Date Notes Provider Name and Address Organization Details Recorded Time Hypertensive disorder 02603788 Active 2022 ANASTACIO DRINKWINE null, PA - [facility] 11:01:17 Problem Notes None recorded. Procedures Surgical History Date Name Laterality Status Provider Name and Address Organization Details Recorded Time thyroidectomy completed ANASTACIO DRINKWINE PA - [facility] 05/20/2023 11:01:29 abdominal wall procedure completed ANASTACIO DRINKWINE PA - [facility] 05/20/2023 11:02:11 Imaging Results Imaging Date Name Status LastModified by Organization Details LastModified Time 05/20/2023 electrocardiogram completed [facility] [place], [address], 05/20/2023 11:24:32 05/20/2023 electrocardiogram completed [facility] [address] [place], [address], 05/20/2023 19:17:20 Procedure Notes None recorded. Medical Equipment None Reported. Allergies Allergen ID Allergen Name Allergen Category Reaction Reaction Severity Criticality Documentation Date Start Date Code Code System Note Provider Name and Address Organization Details Recorded Time 314111 Iodinated contrast media (substanc e) medicatio n Not available Not available Not available 05/20/2023 45589 2003 SNOMED ANASTACIO mix PA - [facility] 3 11:00:05 Medications Name Sig Start Date Stop Date Status Note LastModified by Organization Details LastModified Time levothyroxi ne 125 mcg tablet TAKE 1 TABLET BY MOUTH DAILY active Not Available Not Available No t Available bisacodyl 5 mg tablet,haseeb yed release PLEASE SEE ATTACHED FOR DETAILED DIRECTION S 05/20 completed Not Available Not Available Not Available neomycin 3.5 mg/g-polymy vj B 10,000 unit/g-dexa meth 0.1 % eye oint APPLY TO LEFT LOWER LID FOUR TIMES A DAY 05/20 completed Not Available Not Available Not Available olmesartan 5 mg tablet TAKE 1 TABLET BY MOUTH EVERY DAY active Not Available Not Available No t Available nitrofurant oin monohydrate /macrocryst als 100 mg capsule TAKE 1 CAPSULE BY MOUTH EVERY 12 HOURS WITH FOOD X7DAYS 05/20 completed Not Available Not Available Not Available GaviLyte-G 236 gram-22.74 gram-6.74 gram-5.86 gram oral solution PLEASE SEE ATTACHED FOR DETAILED DIRECTION S 05/20 completed Not Available Not Available Not Available Vitals Date Recorded Body height Body mass index (BMI) Body weight Pain severity - 0-10 verbal numeric rating [Score] - Reported Body temperature Respiratory rate Heart rate Oxygen saturation Oxygen saturation in Arterial blood by Pulse oximetry Systolic blood pressure Diastolic blood pressure Provider Name and Address Organization Details Last Updated DateTime 3 162.56 cm 31.8 kg/m2 85229.5 9 g 0 98.1 [degF] 18 /min 74 /min 98 % 98 % 142 mm[Hg] 86 mm[Hg] ANASTACIO VALE PA - [facility] 3 11:05:39 Social History None recorded. Functional Status None recorded. Mental Status None recorded. Family History Nothing Reported. Medical History No medical history recorded. Gynecological HistoryNo gynecological history recorded. Obstetrics History GPAL:G 0 P 0 0 0 0 Immunizations Vaccine Type Date Status Note Provider Nam e and Address Organization Details Recorded Time COVID-19, mRNA, LNP-S, PF, 30 mcg/0.3 mL dose 01/15/2021 completed ANASTACIO DRINKWINE null, PA - [facility] 05/20/2023 11:02:36 COVID-19, mRNA, LNP-S, PF, 30 mcg/0.3 mL dose 02/05/2021 completed ANASTACIO DRINKWINE null, PA - [facility] 05/20/2023 11:02:36 COVID-19, mRNA, LNP-S, bivalent, PF, 30 mcg/0.3 mL dose 07/23/2022 completed ANASTACIO DRINKWINE null, PA - [facility] 05/20/2023 11:02:36 Past Encounters Encounter ID Performer Location Encounter Start Date Encounter Closed Date Diagnosis/Indication Diagnosis SNOMED-CT Code Diagnosis ICD10 Code Diagnosis Note [id number] [address] [facility] [place] [address] 11/07/2016 17:55:26 11/07/2016 18:53:36 [id number] [place] [address] [place] [address] 05/20/2023 10:48:59 05/20/2023 11:22:55 Chest pain 86313525 R07.9 Health Concerns Section Related Observation LastModified by Organization Detai ls LastModified Time None Recorded Concern Status LastModified by Organization Details LastModified Time None Recorded Advance Directives Directive None Recorded Payers Encounter Date Sequence Insurance Name Policy Number Policy Sharma Covered Member ID Sharma Member ID Guarantor Name 11/07/2016 1 [employer] [facility] [employer] Berleese Perry [id number] Berleese Perry 05/20/2023 1 [employer] [employer] [facility] Berleese Perry [id number] Berleese Perry Notes Date Note Type Note Provider Name and Address Organization Details Recorded Time 3 text/html Chest PainReported bypatient.source of patient informationInformation obtained from patient; Patient arrived at Urgent Care ambulatory; learning styles: auditory; 62 year old female presented with her daughter stating last hour she got dizzy and have sharp chest pain with radiation to her back. she denies any exertional dyspnea or respiratory distress. stating snow she has numbness in her right arm and pain somewhat lessen. No prior HX of DE. denies nay fever or chills, denies any nausea, vomiting or diarrhea. Location:chest; right arm; back;radiates to the back Quality:pressure;sharp Severity:mild Duration:lasts hours Onset/Timing:abrupt onset without warning Context:at rest Alleviating Factors:nothing gives relief Aggravating Factors:nothing makes it worse Associated Symptoms:no dyspnea; no decrease in exercise capacity; no nocturnal episodes; no resting episodes; no associated palpitations;fatigue;dizzin ess;lightheadedness Isaac Hall NP [address] [place], [address], [place] - [facility] 05/20/2023 14:09:37 OBGyn Episode No OBEpisode recorded.
[2024-12-03 16:17] LABS: MANUAL DIFF FLAG NO
[2024-12-03 16:41] LABS: Basophils Percent Auto 0.5 % (0-2); Eosinophils Percent Auto 0.5 % (0-4); Hematocrit 45.4 % (37.0-47.0); Imm Gran Abs Auto 0.04 X10*3/uL (0.00-0.03); Imm Gran Pct Auto 0.5 % (0.0-0.4); Lymphocytes Absolute Auto 2.3 X10*3/uL (1.2-4.9); Lymphocytes Percent Auto 27.9 % (20-40); Mean Corpuscular Hemoglobin 29.6 pg (27.0-33.0); Mean Corpuscular Volume 89.7 fL (80.0-98.0); Mean Platelet Volume 10.4 fL (9.4-12.3); Monocytes Absolute Auto 1.1 X10*3/uL (0.1-1.2); Neutrophils Absolute Auto 4.7 x10*3/uL (2.0-8.3); Neutrophils Percent Auto 57.6 % (45-73); Platelet Count 213 X10*3/uL (160-400); Red Blood Count 5.06 X10*6/uL (4.20-5.50); White Blood Count 8.2 X10*3/uL (4.8-10.8)
[2024-12-03 16:44] LABS: Appearance Urine Cloudy; Color Urine Yellow; Glucose Urine UA Negative (Negative); Leukocyte Esterase Urine Moderate (2+) (Negative); Nitrite Urine Positive (Negative); PH 5.5 (5.0-9.0); Specific Gravity - Urine 1.015 (1.005-1.025); UMIC TRIGGER UA YES; Urine Blood Large (3+) (Negative); Urine Ketones Negative (Negative); Urine Protein 100 (2+) mg/dL (Neg-Trace)
[2024-12-03 16:47] LABS: Bacteria Urine 3+ (None Seen); Hyaline Casts Urine 0-2 /LPF (0-2); RBC Urine >20 /HPF (0-2); Squamous Epithelial Cell Urine 0-2 /HPF (0-2); WBC Urine >50 /HPF (0-5)
[2024-12-03 16:58] LABS: Alanine Aminotransferase 22 U/L (0-31); Albumin Level 4.2 g/dL (3.5-5.0); Anion Gap 16 (12-20); Aspartate Amino Transferase 23 U/L (5-31); Bilirubin Total 0.6 mg/dL (0.0-1.0); Blood Urea Nitrogen 14 mg/dL (9-16); Carbon Dioxide 20 mmol/L (22-29); Chloride 106 mmol/L (96-108); Cholesterol 192 mg/dL (<200); Estimated Glomerular Filt Rate 54; Glucose Fasting 83 mg/dL (60-99); HDL Cholesterol 38 mg/dL (>40); LDL Cholesterol Calculated 130 mg/dL (<100); Potassium 3.9 mmol/L (3.3-5.1); Sodium 138 mmol/L (135-145); Total Protein 8.1 g/dL (6.5-8.0); Triglycerides 122 mg/dL (<150)
[2024-12-03 17:06] LABS: TSH reflex Free T4 2.18 uIU/mL (0.32-4.0)
[2024-12-03 17:43] LABS: Alkaline Phosphatase 94 U/L (39-117)
== END 2024-12-03 12:55 | disposition home or self-care (01) ==
LOC: HO.HMGCLDS 12:54
PROVIDERS: PCP Internal Medicine; Visit Provider Internal Medicine
DX: Z00.00 Encounter for general adult medical examination without abnormal findings (principal); I10 Essential (primary) hypertension; N18.30 Chronic kidney disease, stage 3 unspecified; E03.9 Hypothyroidism, unspecified; E78.5 Hyperlipidemia, unspecified; R30.0 Dysuria
CPT/HCPCS: 36415; 80053; 80061; 81001; 82550; 84443; 85025; 87086; 87088; 87186

== ENCOUNTER 2025-06-12 13:27 | Outpatient (AMB) | payer MEDICARE, BC, SELFPAY ==
--- NOTE | 2025-06-12 13:01 | ...WebTmpl.AM.EDVIS ---
Intake Visit Reasons: AWV Reschedule Allergies Iodinated Contrast Media (IV Contrast Dye) Allergy (Intermediate, Verified 11/11/24 10:46) rash/SOB pravastatin Allergy (Intermediate, Verified 11/11/24 10:46) nausea rosuvastatin (From Crestor) Allergy (Intermediate, Verified 11/11/24 10:46) hives ezetimibe (From Zetia) Adverse Reaction (Intermediate, Verified 11/11/24 10:46) Myalgia
[2025-06-12 13:41] VITALS: BP 118/72; PULSE 84; RESP 18; TEMP 36.6; O2SAT 98; BMI 37.2
--- NOTE | 2025-06-12 13:41 | A.OFFVIS_ITS ---
Intake Vital Signs 06/12/25 13:41 Height 5 ft 3 in Weight 210 lb BMI 37.2 BP 118/72 Blood Pressure Location Lt brachial Position Sitting Respiration 18 Pulse 84 Pulse Source Pulse Oximeter Temp 97.8 F Temp Source Oral Pulse Oximetry (%) 98 Oxygen Delivery Method Room Air Intake Visit Reasons: AWV Reschedule Allergies Iodinated Contrast Media (IV Contrast Dye) Allergy (Intermediate, Verified 06/12/25 13:44) rash/SOB pravastatin Allergy (Intermediate, Verified 06/12/25 13:44) nausea rosuvastatin (From Crestor) Allergy (Intermediate, Verified 06/12/25 13:44) hives ezetimibe (From Zetia) Adverse Reaction (Intermediate, Verified 06/12/25 13:44) Myalgia Medication List - Last Reconciled 06/12/25 by Akua Paige MD albuterol sulfate 90 mcg/actuation 2 puffs inhalation Q6H PRN levothyroxine 125 mcg PO DAILY losartan 25 mg PO DAILY HPI AWV Reschedule HPI Details Initiated the conversation about Advanced Directives. Advanced Directives help? patients prepare for current and future decisions about their medical treatment? and place of care. Discussed with patient that it is a process where a patients? current condition and prognosis are reviewed, their wishes for information? regarding their illness are elicited, and likely medical dilemmas are presented? and options discussed. The form can be amended as needed, reviewed yearly and? make changes as needed IPPE/AWV ? year old presents? for her ? Annual? Wellness Visit, initial visit.? Medical / Social History Reviewed? Past Medical History ?Yes? . ? [place]? of Care / Care Team list updated ?Yes . ? Surgical/Hospitalization? History ?Yes . ? Current Medications? (including OTC and supplements) ?Yes . ? Family History ?Yes? . ? Tobacco? Control form ?Yes . ? AUDIT-C (Alcohol use) form? ?Yes . ? Illicit drug use in Social? History ?Yes . ? Current diagnosis of? depression? ?No ? Appropriate PHQ2/PHQ9? completed ?Yes . ? Data entered by ?Medical? [employer] and reviewed by provider ? Fall Risk ? Fall? History? Have you had any falls with? injury in the past year? ?No . ? Have you had two or more? falls in the past year? ?No . ? Fall Risk Assessment: ?No? falls in the past year . ? HRA filled out by? the patient, reviewed by Provider and scanned. ? IPPE/AWV ? Balance? [place]? ?Yes . ? Tandem? walk ?Yes . ? Walk and? Turn ?Yes . ? Rise from? sit to stand ?Yes . ?Vision? Corrective? lens ?Yes ? Vision? screen ? Up-to-date, has an appointment [] for vision? screening and glaucoma screening ?Hearing? Whisper? test ?pass .? Initiated the conversation about Advanced Directives. Advanced Directives help? patients prepare for current and future decisions about their medical treatment? and place of care. Discussed with patient that it is a process where a patients? current condition and prognosis are reviewed, their wishes for in formation? regarding their illness are elicited, and likely medical dilemmas are presented? and options discussed. The form can be amended as needed, reviewed yearly and? make changes as needed Written? Plan?Completed. See Patient? Documents. FORMERLY [facility], [facility] Medical History Colon polyps Muscle spasm Anesthesia complication Myopathy Snoring Nicotine dependence, cigarettes, uncomplicated CKD (chronic kidney disease) stage 3, GFR 30-59 ml/min Hypothyroidism HTN (hypertension) Lung nodule < 6cm on CT History of mammogram Peptic ulcer disease Obesity Hyperlipidemia Surgical History History of partial gastrectomy History of repair of right rotator cuff History of hysterectomy History of esophagogastroduodenoscopy (EGD) History of thyroidectomy History of colonoscopy Family History Father No problems noted. Mother Multiple sclerosis Social History Household Members: Spouse Housing: House Alcohol intake: current Alcohol intake frequency: does not drink Patient Tobacco Use Status: Current everyday Tobacco user Tobacco use type: Cigarette Cigarette Packs Per Day: 1 Cigarettes Per Day: 20.0 Years Smoked: (onset 18yo, 1ppd x 44yrs, 40pyh) e-Cigarette/Vaping Use: Never Used service: No Current occupational status: unemployed Cognitive needs: No Hearing needs: No Vision needs: No Questionnaire Medicare Wellness Checkup [age] What gender do you identify with?: female During the past 4 weeks, how much have you been bothered by emotional problems such as feeling anxious, depressed, irritable, sad or downhearted, and blue?: not at all During the past 4 weeks, has your physical & emotional health limited your social activities with family, friends, neighbors, or groups?: not at all During the past 4 weeks, how much bodily pain have you generally had?: very mild pain During the past 4 weeks, was someone available to help you if you needed & wanted help?: yes, as much as I wanted During the past 4 weeks, what was the hardest physical activity you could do for at least 2 minutes?: heavy Can you get to places out of walking distance without help? (For eg., can you travel alone on buses, taxis or drive your car?): Yes Can you go shopping for groceries or clothes without someone's help?: Yes Can you prepare your own meals?: Yes Can you do your housework without help?: Yes Because of any health problems, do you need the help of another person with your personal care needs such as eating, bathing, dressing or getting around the house?: No Can you handle your own money without help?: Yes During the past 4 weeks, how would you rate your health in general?: good During the past 4 weeks how have things been going for you?: pretty well Are you having difficulties driving your car?: no Do you always fasten your seat belt when you are in a car?: yes, usually During past 4 weeks, have you been bothered by the following: never: Falling or dizzy when standing up, Sexual problems?, Trouble eating well? and Problems using the telephone? and seldom: Teeth or denture problems? and Tiredness or fatigue? Have you fallen 2 or more times in the past year?: No Are you afraid of falling?: No Are you a smoker?: yes, and I might quit During the past 4 weeks, how many drinks of wine, beer, or other alcoholic bever ages did you have?: no alcohol at all Do you exercise for about 20 minutes 3 or more times a week?: yes, most of the time Have you been given information to help with the following?: yes: Keeping track of your medications? and no: Hazards in your house that might hurt you? How often do you have trouble taking medicines the way you have been told to take them?: I always take medicine as prescribed How confident are you that you can control & manage most of your health problems?: very confident What is your race?: Black or Mini Mental State Exam (MMSE) Orientation What is the (year) (season) (date) (day) (month)?: year, season, date, day and month Where are we (state) (county) (town or city) (hospital) (floor)?: state, county, town or city, hospital/clinic and floor Registration Name of 3 unrelated objects clearly and slowly, then ask patient to repeat all 3 of them. (1st repeat determines score. Make sure they can repeat all three): object 1, object 2 and object 3 Attention & Calculation (CHOOSE ONE) Ask pt to begin with 100 & count backward by 7. Stop after 5 repeats. If pt cannot ask them to spell the word WORLD backward.: 93 Spell WORLD backwards (DLROW): 5 letters Recall Ask patient to repeat the 3 items from question #3.: object 1, object 2 and object 3 Language Show patient a wristwatch & ask what it is. Repeat for pencil.: watch Ask the patient to repeat the phrase 'No ifs, ands, or buts' after you.: correct Ask the patient to 'take a piece of paper with their right hand' 'fold paper in half' 'place paper on floor': take paper in right hand, fold paper in half and place paper on floor Print the sentence 'CLOSE YOUR EYES' on a piece. If patient actually closes eyes then score.: followed written direction Give patient a blank piece of paper & ask to write a sentence. Score if it contains a noun & verb.: sentence contains subject and verb Ask patient to copy figure of intersecting pentagons exactly. Score if all 10 angles & 2 intersects are included.: all 10 angles present & 2 are intersected Score Score: 30 Activity of Daily Living Bathing - sponge bath, tub bath or shower: receives no assistance (gets in/out by self, if usual bathing means Dressing - getting clothes from closets & drawers, including inner/outer garments & fasteners.: gets clothes & gets completely dressed without help Toileting - going to the 'toilet room' for urine/bowel elimination & cleaning self/arranging clothes: goes to toilet room, cleans self, arranges clothes without help Transfer: moves in & out of bed and chair without help (may use support object) Continence: controls urination/bowel movements completely by self Feeding: feeds self without help Total Score: 0 Information obtained from: patient Using telephone: independent Traveling: independent Shopping: independent Preparing meals: independent Housework: independent Taking medicine: independent Managing money: independent PHQ-9 Over the last 2 weeks, how often have you been bothered by any of the following problems? 1. Little interest or pleasure in doing things: not at all 2. Feeling down, depressed, or hopeless: not at all 3. Trouble falling or staying asleep, or sleeping too much: not at all 4. Feeling tired or having little energy: not at all 5. Poor appetite or overeating: not at all 6. Feeling bad about yourself - or that you are a failure or have let yourself or your family down: not at all 7. Trouble concentrating on things, such as reading the newspaper or watching television: not at all 8. Moving or speaking so slowly that other people could have noticed. Or the opposite - being so fidgety or restless that you have been moving around a lot more than usual: not at all 9. Thoughts that you would be better off or of hurting yourself in some way: not at all Total score: 0 Depression Screening Interpretation: Negative Depression Screening Done: Yes 61756 - PHQ-9 Billing: Yes Source: Developed by Drs. Richard Prieto, Gavi Platt, Missael Chavez and colleagues, with an educational stevan from [employer]. Review of Systems Const All systems reviewed & are unremarkable except as noted in HPI and below Eyes Reports no additional complaints ENT Reports no additional complaints Card Reports no additional complaints Resp Reports no additional complaints GI Reports no additional complaints Reports no additional complaints Physical Exam Vital Signs: Last Vital Signs Temp 97.8 F 06/12/25 13:41 Pulse 84 06/12/25 13:41 Resp 18 06/12/25 13:41 BP 118/72 06/12/25 13:41 Pulse Ox 98 06/12/25 13:41 Oxygen Delivery Method Room Air 06/12/25 13:41 BMI result Body Mass Index 37.2 Const General: no acute distress HEENT Head: Yes normal to inspection Ears: hearing grossly normal bilaterally Neck Neck: Yes no lymphadenopathy and Yes supple Resp Effort & Inspection: normal respiratory effort Auscultation: clear to auscultation bilaterally Cardio Rhythm: regular rhythm Heart sounds: S1 normal heart sound present and S2 normal heart sound present GI Inspection: Yes normal to inspection Palpation (GI): Soft to palpation Percussion: Yes normal to percussion Auscultation: normal bowel sounds Extrem General: Yes no clubbing, cyanosis or edema Assessment & Plan Assessment & Plan (1) History of colonoscopy: Comment: polyps - Dawna Espinal - 08/04/2022 - repeat 2024) Code(s): Z98.890 - Other specified postprocedural states Plan: Patient will have repeat colonoscopy with Dr. Green (2) Hyperlipidemia: Comment: (Intolerant to statins) Code(s): E78.5 - Hyperlipidemia, unspecified Plan: Continue low-cholesterol diet check lipid profile (3) HTN (hypertension): Code(s): I10 - Essential (primary) hypertension Plan: Continue current medication (4) Hypothyroidism: Comment: (acquired - s/p thyroidectomy) Code(s): E03.9 - Hypothyroidism, unspecified Plan: Monitor TSH (5) CKD (chronic kidney disease) stage 3, GFR 30-59 ml/min: Code(s): N18.30 - Chronic kidney disease, stage 3 unspecified Plan: Avoid nephrotoxins monitor renal function (6) Nicotine dependence, cigarettes, uncomplicated: Comment: (current smoker - onset 18yo, 1ppd x 44yrs, 40pyh) Code(s): F17.210 - Nicotine dependence, cigarettes, uncomplicated Plan: Tobacco quitting discussed with the patient she declined lung cancer screening program Orders: Orders Comprehensive [place]. Panel Fast Today E03.9 - Hypothyroidism, unspecified, E78.5 - Hyperlipidemia, unspecified, I10 - Essential (primary) hypertension, N18.30 - Chronic kidney disease, stage 3 unspecified Calcium, Ionized Today E03.9 - Hypothyroidism, unspecified, E78.5 - Hyperlipidemia, unspecified, I10 - Essential (primary) hypertension, N18.30 - Chronic kidney disease, stage 3 unspecified Parathyroid Hormone Intact Today E03.9 - Hypothyroidism, unspecified, E78.5 - Hyperlipidemia, unspecified, I10 - Essential (primary) hypertension, N18.30 - Chronic kidney disease, stage 3 unspecified Lipid Panel Today E03.9 - Hypothyroidism, unspecified, E78.5 - Hyperlipidemia, unspecified, I10 - Essential (primary) hypertension, N18.30 - Chronic kidney disease, stage 3 unspecified TSH reflex Free T4 Today E03.9 - Hypothyroidism, unspecified, E78.5 - Hyperlipidemia, unspecified, I10 - Essential (primary) hypertension, N18.30 - Chronic kidney disease, stage 3 unspecified UA w Microscopic Today E03.9 - Hypothyroidism, unspecified Complete Blood Count Auto Diff Today E03.9 - Hypothyroidism, unspecified, E78.5 - Hyperlipidemia, unspecified, I10 - Essential (primary) hypertension, N18.30 - Chronic kidney disease, stage 3 unspecified Vitamin B12 and Folate Today E03.9 - Hypothyroidism, unspecified, E78.5 - Hyperlipidemia, unspecified, I10 - Essential (primary) hypertension, N18.30 - Chronic kidney disease, stage 3 unspecified Vitamin D 25-OH Total Today E03.9 - Hypothyroidism, unspecified, E78.5 - Hyperlipidemia, unspecified, I10 - Essential (primary) hypertension, N18.30 - Chronic kidney disease, stage 3 unspecified Referrals Gastroenterology Referral K63.5 - Polyp of colon, Z00.00 - Encounter for gene ral adult medical examination without abnormal findings, Z98.890 - Other specified postprocedural states Quality Reporting (2020) Depression/Bipolar (159/160/161/177) PHQ-9: Total score: 0 Coding Level of Care Code Medicare Subsequent (G0439) Diagnoses History of colonoscopy Z98.890 Hyperlipidemia E78.5 HTN (hypertension) I10 Hypothyroidism E03.9 CKD (chronic kidney disease) stage 3, GFR 30-59 ml/min N18.30 Nicotine dependence, cigarettes, uncomplicated F17.210 CPT Codes Advance Care Planning - Advance Care Planning discussion: On file, no changes ([id number]) Advance Care Planning - Time spent: 1-15 minutes, on File ([id number]) Additional Codes PHQ-9 - 62915 - PHQ-9 Billing: Yes ([id number]) Advance Care Planning Advance Care Planning discussion: On file, no changes Forms completed: Health Care Proxy Time spent: 1-15 minutes, on File
== END 2025-06-12 14:35 | disposition home or self-care (01) ==
LOC: HO.HMCC 13:28
PROVIDERS: PCP Internal Medicine; Visit Provider Internal Medicine
DX: Z00.00 Encounter for general adult medical examination without abnormal findings (principal); I12.9 Hypertensive chronic kidney disease with stage 1 through stage 4 chronic kidney disease, or unspecified chronic kidney disease; N18.30 Chronic kidney disease, stage 3 unspecified; Z98.890 Other specified postprocedural states; E78.5 Hyperlipidemia, unspecified; E03.9 Hypothyroidism, unspecified; F17.210 Nicotine dependence, cigarettes, uncomplicated

== ENCOUNTER → 2025-06-12 13:27 | Outpatient (BNVA) | payer MEDICARE, BC, SELFPAY | PROVIDERS: PCP Internal Medicine; Visit Provider Internal Medicine | DX: Z00.00 Encounter for general adult medical examination without abnormal findings (principal); E78.5 Hyperlipidemia, unspecified; E03.9 Hypothyroidism, unspecified; I12.9 Hypertensive chronic kidney disease with stage 1 through stage 4 chronic kidney disease, or unspecified chronic kidney disease; N18.30 Chronic kidney disease, stage 3 unspecified; F17.210 Nicotine dependence, cigarettes, uncomplicated; Z98.890 Other specified postprocedural states | CPT/HCPCS: 96127 ==